=== PATIENT | female | born 1945 | race Caucasian/White ===

== ENCOUNTER → 2023-05-03 10:57 | Outpatient (REF) | payer OTHER, SELFPAY | LOC: RAD 10:57 | PROVIDERS: ATTENDING PHYSICIAN Internal Medicine Rheumatology; FAMILY PHYSICIAN Internal Medicine; REFERRING PHYSICIAN Obstetrics & Gynecology | DX: M85.88 Other specified disorders of bone density and structure, other site (principal); M81.0 Age-related osteoporosis without current pathological fracture | CPT/HCPCS: 77080 ==

== ENCOUNTER → 2023-07-15 13:22 | Outpatient (REF) | payer OTHER, SELFPAY | LOC: HWWDC 13:22 | PROVIDERS: ATTENDING PHYSICIAN Obstetrics & Gynecology; FAMILY PHYSICIAN Internal Medicine | DX: Z12.31 Encounter for screening mammogram for malignant neoplasm of breast (principal) | CPT/HCPCS: 77063; 77067 ==

== ENCOUNTER 2023-09-05 19:18 | Inpatient (IN) | payer OTHER, SELFPAY ==
[2023-09-05] VITALS (7 sets, daily range): BP systolic 116–168; BP diastolic 57–137; BMI 24.9
[2023-09-05] MEDS: DILAUDID 0.5 MG IV ×4 (17:04→22:14)
--- NOTE | 2023-09-05 17:04 | ED.GENMED ---
History of Present Illness
General
Chief Complaint: Fall
Source: patient
Exam Limitations: none
Time Seen by Provider: 09/05/23 16:59
Travel History
Have you had any contact with someone who has COVID-19?: No
Do you have any symptoms of coronavirus? Fever > 100 degrees, chills, cough, shortness of breath, sore throat, loss of taste or smell, muscle aches, or headache?: No
History of Present Illness
History of Present Illness:
See MDM
Past History
Past History
ED Past Medical History: Other (Recurrent bowel obstruction, intra-abdominal adhesions, diverticulitis, intracranial hemorrhage)
ED Past Surgical History: Bowel resection and Orthopedic
Social History
Tobacco: Non-smoker
Alcohol: None
Phy Exam
Physical Exam
Physical Exam:
See MDM
Course
Orders/Labs/Results
Orders:
Orders
09/05/23 16:55
Complete Blood Count/With Diff Urgent
Comprehensive Metabolic Panel Urgent
09/05/23 17:01
PTT Urgent
Prothrombin Time Urgent
09/05/23 17:03
HYDROmorphone [Dilaudid] 0.5 mg IV NOW STA
Ondansetron Injectable [Zofran] 4 mg IV NOW STA
Femur, Right 2 View [CR Femur - Right Min 2 Vw] Urgent
Comment:
Reason For Exam: fall, mid femur pain
Hip, Right 2-3 Views [CR Hip - RT w/wo Pel 2-3 Vw*] Urgent
Comment:
Reason For Exam: fall, R hip pain
Include a pelvis x-ray?: Yes
09/05/23 17:38
Electrocardiogram (*1) Urgent
Reason for Study: PreOp
EKG- Treatment ONCE
09/05/23 17:41
Consult Orthopedic [ORTHOPEDIC CONSULT] Routine
Consulting Provider: Mark Saldaña
Was physician already notified: Yes
09/05/23 17:52
HYDROmorphone [Dilaudid] 0.5 mg IV NOW STA
Abnormal Lab Results
09/05/23
16:55
RBC 3.92 L 10^6/uL
(4.20-5.40)
Hgb 11.7 L g/dL
(12.0-16.0)
MCHC 31.4 L g/dL
(33.0-37.0)
Eosinophils % 9.5 H %
(0-6)
Glucose 112 H mg/dl
(70-99)
09/05/23 16:55
09/05/23 16:55
Vital Signs
Initial and Last Documented VS:
Initial Vital Signs
Temp Pulse Resp BP Pulse Ox
97.8 F 70 20 159/88 97
09/05/23 16:50 09/05/23 16:50 09/05/23 16:50 09/05/23 16:50 09/05/23 16:50
Last Documented Vital Signs
Temp Pulse Resp BP Pulse Ox
97.8 F 64 15 168/137 99
09/05/23 16:50 09/05/23 17:00 09/05/23 17:00 09/05/23 17:00 09/05/23 17:00
MDM/Problems Addressed
Differential Diagnosis Includes:
HPI and MDM Narrative:
78-year-old female presenting with a trip and fall. Patient states she landed on her right hip. She complains of right hip and thigh pain. Patient is concerned she broke her hip. On exam, patient does warrant an externally rotated right leg. It
is neurovascular intact. I evaluated the patient immediately on arrival and ordered IV Dilaudid
Physical exam
General: Uncomfortable
HEENT: protecting airway
Neck: appears supple
CV: No evidence of cyanosis
Resp: No accessory muscle use
Abd: Non-distended
Extremities: Swelling and tenderness to right lateral hip. Distal extremity neurovascular intact. Extremity is externally rotated and shortened
Neuro: alert
Psych: Normal affect
Skin: Intact
Problems Addressed including Acute and Chronic Conditions affecting care:
1. Hip fracture
Acuity: acute
Prognosis: unstable
Details: Patient placed on IV pain medicine. Will discuss case with orthopedics
Updates
X-ray consistent with intertrochanteric fracture. Orthopedics made aware. Will admit
Differential Diagnosis (but not limited to): Hip fracture, pelvic fracture, femur fracture
Testing considered: CT head but she denies head trauma
Drug therapy (if applicable): OTC meds, please see d/c instruction regarding Rx drugs
Amount and/or Complexity of Data Reviewed
Clinical info obtained from: Patient
External data reviewed: N/A
Labs I independently reviewed (but not limited to): Hemoglobin stable
Radiology: X-ray independently reviewed: Hip x-ray shows intertrochanteric fracture
Pulse Ox: not hypoxic
EKG independently reviewed: Sinus bradycardia, normal axis, no STEMI
Saddle Maker: N/A
Critical Care: N/A
Risk of Complication:
Social Determinants of health: Good social support
Discussed with other providers: Orthopedics, hospitalist
Escalation of Care includes Admit/Obs: Given the hip fracture with current nonweightbearing status, will admit
Occasional wrong word or 'sound a like' substitutions may have occurred due to the inherent limitations of voice recognition software. Read the chart carefully and recognize, using context, where substitutions have occurred.
*Critical Care Note
Total Time (30-74mins, 75-104mins- exclusive of procedures): Not Applicable
ED Attending Note
-
Portions of this chart may have been created with voice recognition software.� Occasional wrong word or��sound alike� substitutions may have occurred due to the inherent limitations of voice recognition software.
Discharge Plan
Departure
Patient Disposition: Admit
Date of Disposition: 09/05/23
Time of Disposition: 17:44
Admit to: Med/Surg
Presentation/result/management discussed w/ accepting MD/DO: Hospitalist
Discharge Problem:
Intertrochanteric fracture of right hip
Prescriptions:
No Action
sucralfate 1 GRAM tablet
1 g PO ACHSPRN PRN (Reason: gi upset/issues)
lisinopril 20 MG tablet
20 mg PO DAILY
alprazolam 0.5 MG tablet
0.5 - 1 mg PO HSPRN PRN (Reason: insomnia)
famotidine 20 MG tablet
20 mg PO BID
escitalopram oxalate 10 MG tablet
10 mg PO HS
ascorbic acid (vitamin C) [Vitamin C] 500 MG tablet
500 mg PO DAILY
Glucosamine Sulf-Chondroitin 1 EACH capsule
2 tab PO DAILY
Align 4 MG capsule
1 tab PO DAILY
flaxseed-omega3,6,9-fatty acid 1 EACH capsule
1,000 mg PO BID
diphenhydramine HCl [Banophen] 50 MG capsule
50 mg PO HSPRN PRN (Reason: sleep)
cyanocobalamin (vitamin B-12) 1,000 MCG tablet
1,000 mcg PO DAILY
Potassium-99 99 MG tablet
99 mg PO DAILY
hyoscyamine sulfate 0.125 MG tablet, sublingual
0.125 mg PO Q4HPRN PRN (Reason: bowel problems)
B-complex with vitamin C 1 CAPLET tablet
1 cap PO TUTHSA
Systane Ultra (PF) 1 EACH dropperette
1 drp BOTH EYES QIDPRN PRN (Reason: dry eyes)
cholecalciferol (vitamin D3) 1,000 UNITS tablet
25 mcg PO DAILY
multivitamin with folic acid [Tab-A-Aric] 1 TABLET tablet
1 tab PO DAILY
atorvastatin 20 mg Tablet
20 mg PO QPM
aspirin 81 mg Tablet,Chewable
81 mg PO DAILY
Referrals:
Moses Alvarez MD [Family Provider] -
Interventions
Interventions:
*Risk Screen - Suicide Last Done: 09/05/23 16:50
*General Assessment Last Done: 09/05/23 16:50
*Neglect/Abuse Screening Last Done: 09/05/23 16:50
*ED COVID-19 Vaccine History Last Done: 09/05/23 16:50
ED-Musculoskeletal Assessment Last Done: 09/05/23 17:00
ED- Neurological Assessment Last Done: 09/05/23 17:00
ED-Skin Assessment Last Done: 09/05/23 17:00
[2023-09-05 17:05] LABS: % Eosinophils 9.5 % (0-6); % Immature Granulocytes 0.4 % (0-0.5); % Lymphocytes 23.8 % (20.5-51.1); % Monocytes 7.6 % (1.7-9.3); % Neutrophils 57.7 % (42.2-75.2); Absolute Basophils 0.1 10^3/uL (0-0.2); Absolute Eosinophils 0.7 10^3/uL (0-0.7); Absolute Lymphocytes 1.9 10^3/uL (1.2-3.4); Absolute Monocytes 0.6 10^3/uL (0.1-0.6); Absolute Neutrophils 4.5 10^3/uL (1.4-6.5); Hematocrit 37.3 % (37.0-47.0); Hemoglobin 11.7 g/dL (12.0-16.0); Mean Corp Hgb Conc. 31.4 g/dL (33.0-37.0); Mean Corpuscular Hgb 29.8 pg (27.0-31.0); Mean Corpuscular Volume 95.2 fL (81.0-99.0); Mean Platelet Volume 9.6 fL (7.4-10.4); Nucleated Red Blood Cells % 0 %; Platelet Count 289 10^3/uL (130-400); Red Blood Cell Count 3.92 10^6/uL (4.20-5.40); Red Cell Dist. Width 13.4 % (11.5-14.5); White Blood Cell Count 7.8 10^3/uL (4.8-10.8)
[2023-09-05] MEDS: ZOFRAN 4 MG IV (17:05)
[2023-09-05 17:17] LABS: ALT (SGPT) 18 U/L (0-35); AST (SGOT) 32 U/L (14-36); Albumin 4.3 g/dl (3.5-5.0); Alkaline Phosphatase 67 U/L (38-126); Blood Urea Nitrogen 17 mg/dl (7-17); Calcium 10.1 mg/dl (8.4-10.2); Carbon Dioxide 25 mmol/L (22-30); Chloride 101 mmol/L (98-107); Glucose 112 mg/dl (70-99); Potassium 4.3 mmol/L (3.5-5.1); Sodium 135 mmol/L (135-145); Total Bilirubin 0.5 mg/dl (0.2-1.3); Total Protein 6.7 g/dl (6.3-8.2); eGFR > 60.00
[2023-09-05 17:23] LABS: APTT 29.1 Sec (23.4-35.0); INR 1.05; PT 13.5 Sec (11.4-14.6)
--- NOTE | 2023-09-05 18:31 | CON.MD ---
Consultation - Medical
-
Full consult dictated. 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 Unable to ambulate and brought to [facility]. Radiographs revealed a displaced right IT hip fracture. Patient has a
history of right TKR performed at [place] 10 years ago. No knee pain. Hgb stable. Have discussed treatment options and have consented the patient for right hip ORIF with a gamma nail. Have placed the patient on the OR schedule for tomorrow as the OR
permits. Risks, benefits, complications and post op expectations discussed. The procedure was discussed in detail. All questions answered. NPO after MN.
--- NOTE | 2023-09-05 18:53 | HPS.HSE ---
Family Physician
-
Family Physician: Moses Alvarez MD
Chief Complaint
-
fall, right hip pain
History of Present Illness
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 Found to have a right IT fracture. Ortho saw the patient in the ED and plan is for OR
tomorrow. No focal neuro nor vascular deficits, no n/v, no CP, no SOB, no LOC, no syncope, positive for right hip pain.
Medical History
Past Medical History
Past Medical History: Reports GERD, HTN, Psychiatric and Other (perforated diverticulitis, recurrent small bowel obstructions )
Past Surgical History: Reports Bowel Resection (Dom's procedure and status post colostomy reversal in 1989 , small bowel resection in 2003, 2005 and more recently in August of 2021 at the [facility]), Orthopedic (history
of right TKR performed at [place] 10 years ago) and Other (LLE vein stripping, lysis of adhesions [place] 2021)
Social History
Tobacco: Non-smoker
Alcohol: None
Drug: None
Family History
Family History: Not pertinent
Allergies / Home Medications
Allergies reflects when Allergies were last updated in [facility].
Home Medications with original date entered in [facility]
Allergy/Medication List:
Allergies
Allergy/AdvReac Type Severity Reaction Status Date / Time
levofloxacin [From Levaquin] Allergy Unknown Verified 03/15/23 17:40
sorbitol Allergy DIARRHEA Verified 03/15/23 17:40
sulfamethoxazole Allergy Unknown Verified 03/15/23 17:40
[From Bactrim]
trimethoprim [From Bactrim] Allergy Unknown Verified 03/15/23 17:40
Home Medications
alprazolam 0.5 mg tablet 0.5 - 1 mg PO HSPRN PRN insomnia 05/19/21
escitalopram oxalate 10 mg tablet 10 mg PO HS Mental Health/Anxiety 05/19/21
famotidine 20 mg tablet 20 mg PO BID Gastrointestinal issue 05/19/21
lisinopril 20 mg tablet 20 mg PO DAILY Blood pressure 05/19/21
sucralfate 1 gram tablet 1 g PO ACHSPRN PRN gi upset/issues 05/19/21
B-complex with vitamin C 1 cap PO TUTHSA Supplement 06/25/21
Bifidobacterium infantis 4 mg capsule (Align) 1 tab PO DAILY Supplement 06/25/21
ascorbic acid (vitamin C) 500 mg tablet (Vitamin C) 500 mg PO DAILY Supplement 06/25/21
cholecalciferol (vitamin D3) 25 mcg (1,000 unit) tablet 25 mcg PO DAILY Supplement 06/25/21
cyanocobalamin (vitamin B-12) 1,000 mcg tablet 1,000 mcg PO DAILY Supplement 06/25/21
diphenhydramine HCl 50 mg capsule (Banophen) 50 mg PO HSPRN PRN sleep 06/25/21
flaxseed oil-omega 3,6,9-fatty acids 1,300 mg-670 mg-155 mg capsule 1,000 mg PO BID Supplement 06/25/21
glucosamine sulfate dipotassium Cl 500 mg-chondroitin 400 mg capsule (Glucosamine Sulfate 2 KCL-Chondroitin) 2 tab PO DAILY Supplement 06/25/21
hyoscyamine sulfate 0.125 mg sublingual tablet 0.125 mg PO Q4HPRN PRN bowel problems 06/25/21
multivitamin with folic acid 400 mcg tablet (Tab-A-Aric) 1 tab PO DAILY Supplement 06/25/21
peg 400-propylene glycol (PF) 0.4 %-0.3 % eye drops in a dropperette (Systane Ultra (PF)) 1 drp BOTH EYES QIDPRN PRN dry eyes 06/25/21
potassium 99 mg tablet (Potassium-99) 99 mg PO DAILY Electrolyte Repletion 06/25/21
aspirin 81 mg chewable tablet 81 mg PO DAILY Blood clot prevention/tx 02/16/22
atorvastatin 20 mg tablet 20 mg PO QPM High cholesterol 02/16/22
Review of Systems
-
A 12 point ROS was completed and negative except as noted: Yes
Physical Exam
Vital Signs
Vital Signs
Temp Pulse Resp BP Pulse Ox
97.8 F 74 16 133/58 97
09/05/23 16:50 09/05/23 18:15 09/05/23 18:15 09/05/23 18:06 09/05/23 18:15
Physical Exam
General: Well Developed, Well Nourished, No Apparent Distress, Conversant and Other (pain due to hip fracture)
HEENT: NormoCephalic, Anicteric and Moist mucous membranes
Respiratory: Clear
Cardiac: S1/S2 and Regular Rhythm
GI: Soft, Non Tender and Non Distended
Musculoskeletal: No Clubbing, No Cyanosis, No Edema and Other (right hip externally rotated and shortened)
Skin: Warm and Dry
Neuro: AO x 3, No Motor Deficits and Nonfocal/grossly intact
Psych: Calm
Laboratory Results
-
09/05/23 16:55
09/05/23 16:55
Laboratory Results
PT 13.5 Sec (11.4-14.6) 09/05/23 17:01
INR 1.05 09/05/23 17:01
APTT 29.1 Sec (23.4-35.0) 09/05/23 17:01
Total Bilirubin 0.5 mg/dl (0.2-1.3) 09/05/23 16:55
AST 32 U/L (14-36) 09/05/23 16:55
ALT 18 U/L (0-35) 09/05/23 16:55
Alkaline Phosphatase 67 U/L (38-126) 09/05/23 16:55
Data Reviewed
-
Medical Tests (Nuc Med, Echo, EKG etc): Image Personally Visualized and interpreted and Report Reviewed by me (sinus bradycardia)
Impression/Plan
-
IMPRESSION:
#Mechanical fall resulting in displaced right IT hip fracture:
-seen by Ortho in ED who consented the patient for right hip ORIF with a gamma nail, placed the patient on the OR schedule for tomorrow as the OR permits.�
-NPO p mn
-gentle IV fluids
-ok for diet up until midnight
-pain management prn
-supportive care
-bedrest
-EKG sinus bradycardia, heart rate 70 on tele, continue tele monitoring overnight
# History of recurrent small-bowel obstruction and bowel resection
-Dom's procedure and status post colostomy reversal in 1989 , small bowel resection in 2003, 2005 and more recently in August of 2021 at the [facility]
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
# Essential hypertension
-continue Lisinopril
# Depression
-cont Lexapro
-prn Ativan per home dosing at night
DVT proph-PCSs
Full Code
[2023-09-05] MEDS: NSS 1000 IV (19:59)
[2023-09-05] MEDS: PEPCID 20 MG PO (20:04)
[2023-09-05] MEDS: TYLENOL 650 MG PO (20:04)
[2023-09-05] MEDS: LEXAPRO 10 MG PO (22:14)
[2023-09-06] VITALS (13 sets, daily range): BP systolic 92–145; BP diastolic 47–88
[2023-09-06] MEDS: TYLENOL 650 MG PO ×3 (00:14→11:49)
--- NOTE | 2023-09-06 03:51 | PTCARENOTE ---
Pt received from ED via stretcher around 1950. Pulled over to bed x3 without incident. AAOx3. Telemetry = SR. Admission and assessment completed. Oriented to environment and plan of care discussed. Medicated for R hip pain per orders (refer to
MAR). Static overlay in place. Purewick external catheter maintained. IVF infusing via LAC. Call christopher within reach. Monitoring continues.
[2023-09-06] MEDS: TYLENOL PO (05:03)
[2023-09-06] MEDS: DILAUDID 0.5 MG IV ×4 (05:29→16:10)
--- NOTE | 2023-09-06 06:41 | PTCARENOTE ---
Complete bed bath and 1st set of CHG cloths used. Pt bladder scanned for 719 mL, straight cathed using sterile technique for 800 mL cloudy yellow urine. Purewick replaced.
[2023-09-06] MEDS: ZESTRIL 20 MG PO (07:58)
[2023-09-06] MEDS: PEPCID 20 MG PO (07:58)
--- NOTE | 2023-09-06 08:10 | W.PN.UPDATE ---
Update Note
Progress Note Update
Ms. Dowd is resting comfortably in bed this morning. She does endorse continued aching pain about the hip, but otherwise reports she is doing well.
Directed exam of the right lower extremity: tenderness to palpation about the right hip. Thigh soft and compressible. Calf soft and nontender. Patient able to wiggle toes, plantar and dorsiflex ankle. Neurovascularly intact distally.
Hgb 11.7 this AM.
Right intertrochanteric femur fracture
--We plan to proceed with surgical intervention today under the direction of Dr. Saldaña.
--NPO until surgery.
--NWB to RLE until surgery.
--Continue current pain management regimen.
--Antibiotic ordered to OR.
--T+S ordered.
--- NOTE | 2023-09-06 09:02 | W.PN.HOSP.TC ---
Today's Communication/Plan
-
For right hip surgical fixation today
Assessment / Plan
Assessment / Plan
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
[employer])� and fell after tripping over a tarp earlier today, resulting in severe right hip pain, inability to ambulate due to pain. Found to have a right IT fracture. Ortho saw the patient in the ED and plan is for OR tomorrow. No focal neuro
nor vascular deficits, no n/v, no CP, no SOB, no LOC, no syncope, positive for right hip pain.
#Mechanical fall resulting in displaced right IT hip fracture:
Appreciate orthopedic surgery input, plan for right hip ORIF with a gamma nail today by Dr. Saldaña
N.p.o., IV fluids, pain control, laxatives
PT/OT after surgery
#Sinus bradycardia
Mild, monitor in telemetry
# Essential hypertension
Blood pressure soft, will hold lisinopril
# History of recurrent small-bowel obstruction and bowel resection
Dom's procedure and status post colostomy reversal in 1989, small bowel resection in 2003, 2005 and more recently in August of 2021 at the [facility]
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
# Depression
Continue home Lexapro, Ativan as needed
DVT proph-SCDs in anticipation of surgery, recommend Lovenox afterwards
Full Code
Physical Exam
General: No acute distress
HEENT: Normocephalic, Atraumatic, EOMI, MMM
Respiratory: Clear to Auscultation bilaterally
Cardiac: Normal S1/S2, Regular Rate and Rhythm
GI: Soft, Nontender, Nondistended, Normal Bowel Sounds
Extremities: No Clubbing, Cyanosis, or Edema
Musculoskeletal: Right leg shortened and externally rotated
Neuro: Nonfocal/Grossly Intact
Psych: Calm, Cooperative
Anticipated Discharge: > 48 hours
Subjective/Interval History
-
Date of Service: September 06, 2023
Patient reports that her right hip pain is 6 out of 10 in intensity. She denies chest pain, shortness of breath. No nausea, no vomiting. No fever.
Objective Data
-
Vital Signs:
Vital Signs
Temp Pulse Resp BP Pulse Ox
98.0 F 60 18 125/52 97
09/06/23 07:20 09/06/23 07:20 09/06/23 07:20 09/06/23 07:20 09/06/23 07:20
I&O
09/05/23 09/06/23 09/07/23
06:59 06:59 06:59
Intake Total 740 / 740
Output Total 800 / 800
Balance -60 / -60
[2023-09-06] MEDS: MIRALAX PO (10:07)
--- NOTE | 2023-09-06 11:32 | CM ---
CM following re: discharge planning.
Reviewed pt's chart, met with pt.
Pt is an 78 year old female, admitted with primary dx of hip fx. Pt is aware, she is to OR today.
Pt reports she lives with in a 2SH, 2 steps to enter, has 2 supportive children. 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 No DME or VN. Pt reports she was at [facility].
Pt reports she understands she will need to go to a SNF after the surgery and pt preferred following SNFs: [facility], [facility] or [facility].
CM will afua a referral to requested SNF after PT/OT evaluations.
PCP: Moses Alvarez
Pharmacy: [facility].
D/C plan: preferred requested SNFs: [facility], [facility], [facility].
CM will follow to assist pt with discharge to a preferred SNF.
[2023-09-06] MEDS: ANCEF 10 IV (14:12)
[2023-09-06] MEDS: DILAUDID 0.25 MG IV ×2 (15:50→15:57)
[2023-09-06] MEDS: NSS 1000 IV (16:41)
--- NOTE | 2023-09-06 17:12 | PTCARENOTE ---
1700: Patient arrived to the unit from PACU. Head to toe assessment completed. Neurovascular assessment completed. Patient has poor movement in R LE. R hip and leg dressing clean, dry and intact. IVF infusing per MD order. Patient on 2L NC with SpO2
greater than 92%. Call christopher within reach and bed in lowest position. Patients at bedside.
[2023-09-06] MEDS: NSS IV (17:22)
[2023-09-06] MEDS: ASPIRIN 325 MG PO (17:30)
[2023-09-06] MEDS: LIPITOR 20 MG PO (17:30)
[2023-09-06] MEDS: ANCEF 5 IV (20:59)
[2023-09-06] MEDS: SENOKOT 17.1999999999999993 MG PO (20:59)
[2023-09-06] MEDS: COLACE 100 MG PO (20:59)
[2023-09-06] MEDS: LEXAPRO 10 MG PO (21:00)
--- NOTE | 2023-09-06 21:45 | PTCARENOTE ---
Pt aaox3, cooperative, anxious. oob to bsc x1 assist with RW. Pt steady, denies dizzines. Pt voided large amount of urine. Pt back into bed without issues.
[2023-09-06] MEDS: XANAX 0.5 MG PO (23:35)
[2023-09-07] VITALS (7 sets, daily range): BP systolic 102–130; BP diastolic 46–78; PULSE 67–72; O2SAT 98
[2023-09-07] MEDS: NSS 1000 IV ×2 (06:03→17:11)
[2023-09-07] MEDS: ANCEF 5 IV (06:03)
[2023-09-07 06:12] LABS: Hematocrit 25.6 % (37.0-47.0); Mean Corp Hgb Conc. 32.4 g/dL (33.0-37.0); Mean Corpuscular Hgb 30.7 pg (27.0-31.0); Mean Corpuscular Volume 94.8 fL (81.0-99.0); Mean Platelet Volume 10.1 fL (7.4-10.4); Platelet Count 216 10^3/uL (130-400); Red Cell Dist. Width 13.7 % (11.5-14.5); White Blood Cell Count 10.8 10^3/uL (4.8-10.8)
[2023-09-07 06:20] LABS: Hemoglobin 8.3 g/dL (12.0-16.0)
[2023-09-07 06:36] LABS: Blood Urea Nitrogen 16 mg/dl (7-17); Calcium 8.1 mg/dl (8.4-10.2); Carbon Dioxide 26 mmol/L (22-30); Chloride 104 mmol/L (98-107); Estimated Creatinine Clearance 55 ml/min; Glucose 159 mg/dl (70-99); Phosphorus 2.9 mg/dl (2.5-4.5); Potassium 4.6 mmol/L (3.5-5.1); Sodium 132 mmol/L (135-145); eGFR > 60.00
[2023-09-07] MEDS: VITAMIN D3 (cholecalciferol) 25 MCG PO (07:57)
[2023-09-07] MEDS: MIRALAX 17 GRAMS PO (07:57)
[2023-09-07] MEDS: PEPCID 20 MG PO (07:57)
[2023-09-07] MEDS: THERAGRAN 1 TABLET PO (07:57)
[2023-09-07] MEDS: COLACE 100 MG PO (07:57)
[2023-09-07] MEDS: ASPIRIN 325 MG PO (07:57)
[2023-09-07] MEDS: SENOKOT 17.1999999999999993 MG PO (07:57)
[2023-09-07] MEDS: VITAMIN C 500 MG PO (07:57)
--- NOTE | 2023-09-07 07:58 | W.PN.HOSP.TC ---
Addendum entered and electronically signed by Kulwinder Spence MD 09/07/23 16:20:
Right hip fracture is multifactorial in etiology, due to low level fall and age- related osteoporosis
Original Note:
Today's Communication/Plan
-
see bold
Assessment / Plan
Assessment / Plan
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 Found to have a right IT fracture. Ortho saw the patient in the ED and plan is for OR tomorrow. No focal neuro
nor vascular deficits, no n/v, no CP, no SOB, no LOC, no syncope, positive for right hip pain.
#Mechanical fall resulting in displaced right IT hip fracture:
Appreciate orthopedic surgery input, s/p ORIF with a gamma nail 09/[address] Saldaña
Pain control, laxatives, PT/OT - rec SNF
Will need aspirin 325 mg x 4 weeks for DVT prophylaxis
#Acute blood loss anemia
Secondary to fracture and surgery
Hemoglobin 8.3 today, was 11.7 upon admission
Continue to monitor, may need blood transfusion if it dips less than 8
#Acute hypoxic respiratory sufficiency
Currently requiring 2 L of oxygen, wean as tolerated
No fever, no shortness of breath, no coughing
Suspect secondary to atelectasis, incentive spirometry ordered
#Sinus bradycardia
Resolved
# Essential hypertension
Blood pressure soft, holding lisinopril
# History of recurrent small-bowel obstruction and bowel resection
Dom's procedure and status post colostomy reversal in 1989, small bowel resection in 2003, 2005 and more recently in August of 2021 at the [facility]
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
# Depression
Continue home Lexapro, Ativan as needed
DVT proph-aspirin 325 mg daily as per orthopedic surgery
Full Code
Physical Exam
General: No acute distress
HEENT: Normocephalic, Atraumatic, EOMI, MMM
Respiratory: Clear to Auscultation bilaterally
Cardiac: Normal S1/S2, Regular Rate and Rhythm
GI: Soft, Nontender, Nondistended, Normal Bowel Sounds
Extremities: No Clubbing, Cyanosis, or Edema
Musculoskeletal: Right hip incision dressed
Neuro: Nonfocal/Grossly Intact
Psych: Calm, Cooperative
Anticipated Discharge: 24 - 48 hours
Subjective/Interval History
-
Date of Service: September 07, 2023
Patient reports having severe hip pain yesterday, improved today. She is constipated, but tolerating her diet. No nausea, no vomiting. No fever. No chest pain, no shortness of breath.
Objective Data
-
Labs:
Laboratory Results
09/07/23
05:06
WBC 10.8
Hgb 8.3 L D
Hct 25.6 L
Plt Count 216 D
Sodium 132 L
Potassium 4.6
Chloride 104
Carbon Dioxide 26
BUN 16
Creatinine 0.7
Glucose 159 H
Calcium 8.1 L D
Vital Signs:
Vital Signs
Temp Pulse Resp BP Pulse Ox
99.1 F 75 16 113/55 97
09/07/23 07:00 09/07/23 07:00 09/07/23 07:00 09/07/23 07:00 09/07/23 07:00
I&O
09/06/23 09/07/23 09/08/23
06:59 06:59 06:59
Intake Total 740 / 740 1780 / 1780
Output Total 800 / 800 550 / 550
Balance -60 / -60 1230 / 1230
[2023-09-07] MEDS: VITAMIN B-12 1000 MCG PO (08:03)
[2023-09-07] MEDS: VITAMIN B-12 PO (08:03)
[2023-09-07] MEDS: LONITEN 1.25 MG PO (09:11)
--- NOTE | 2023-09-07 09:45 | W.PN.ORTHO ---
Today's Communication / Plan
-
78 year old female POD #1 s/p right hip gamma nail.�
-WBAT with walker.�
-PT/OT to tolerance.�
-Pain control as needed.� Ice to right hip.�
-Aspirin 325 mg po daily x 4 weeks for DVT prophylaxis.
-Dressings to remain in place x 7-10 days.�
-Appreciate case management's efforts in discharge planning.� Patient would like to go to rehab center. D/c when medically stable.
-Norberto to be removed at 2 weeks post op.� If done in rehab or at home, f/u in office in 4 weeks for repeat x-rays.
-Ortho will continue to follow.
Assessment
.
Distal Motor Intact: Yes
Dressing:
Clean, dry and intact.
Assessment:
78 year old female POD #1 s/p right hip gamma nail.
-WBAT with walker.
-PT/OT to tolerance.
-Pain control as needed. Ice to right hip.
-Aspirin 325 mg po daily x 4 weeks for DVT prophylaxis.
-Dressings to remain in place x 7-10 days.
-Appreciate case management's efforts in discharge planning. Patient would like to go to rehab center. D/c when medically stable.
-Norberto to be removed at 2 weeks post op. If done in rehab or at home, f/u in office in 4 weeks for repeat x-rays.
-Ortho will continue to follow.
Plan
.
Surgery / Date: 09/06/23 - right hip gamma nail - Dr. Saldaña
DVT Prophylaxis: Aspirin
Activity:
Out of bed.
PT/OT
Discharge Plan: Rehab
Subjective
.
.:
Patient resting comfortably in bed eating breakfast. Denies any pain at rest. Was able to get up and ambulate around 11 pm last night. Reports she had some mild discomfort, but overall was pleased with her lack of pain and her ability to ambulate
with the walker. States she would like to be discharged to a rehab center when medically stable.
Vital Signs and Labs
.
Vital Signs and Labs:
Lab Results
09/07/23 05:06
09/07/23 05:06
Temp Pulse Resp BP Pulse Ox
99.1 F 75 16 113/55 97
09/07/23 07:00 09/07/23 07:00 09/07/23 07:00 09/07/23 07:00 09/07/23 07:00
PT 13.5 Sec (11.4-14.6) 09/05/23 17:01
INR 1.05 09/05/23 17:01
Physical Exam
-
right hip/thigh: Aquacel dressings c/d/i. Minimal drainage on proximal dressing. Mild diffuse swelling. No erythema or ecchymosis. Gentle ROM without pain. Calf is soft and non tender to palpation. N/v intact distally.
[2023-09-07] MEDS: DUPHALAC/CHRONULAC 20 GRAMS PO (11:21)
[2023-09-07] MEDS: MILK OF MAGNESIA 30 ML PO (11:21)
[2023-09-07] MEDS: ROXICODONE 5 MG PO ×2 (11:33→21:51)
--- NOTE | 2023-09-07 14:47 | PN.CDI ---
CDI
- -
CDI:
Physician Documentation Request
Admit Date: 09/05/23 19:18
Dear Doctor Do,
Patient admitted with displaced right IT hip fracture s/p ORIF with a gamma nail.
09/06 PN, 'Mechanical fall resulting in displaced right IT hip fracture.....fell after tripping over a tarp.'
02/23/2011 Bone density, 'IMPRESSION: Osteopenia of the lumbar spine and proximal femur without significant change.'
Patient's home medication list includes Fosamax and Vitamin D.
Please provide in your note the likely etiology/etiologies of the documented right hip fracture:
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
Low level fall only
Other
Use of terms such as suspected, likely, concern for, or probable (associated with a specific diagnosis that is being evaluated, monitored, or treated as if it exists) are acceptable and can be coded in the inpatient setting, when documented at the
time of discharge.
Thank you,
Bhavya FABIAN,RN,CCDS
CDI Specialist
Available via [place] text
Please use your independent medical judgment in providing your response.
[2023-09-07] MEDS: LIPITOR 20 MG PO (17:11)
[2023-09-07] MEDS: COLACE PO (21:36)
[2023-09-07] MEDS: SENOKOT PO (21:36)
[2023-09-07] MEDS: DUPHALAC/CHRONULAC PO (21:36)
[2023-09-07] MEDS: LEXAPRO 10 MG PO (21:51)
[2023-09-07] MEDS: XANAX 0.5 MG PO (21:51)
[2023-09-08 06:21] LABS: Hematocrit 25.3 % (37.0-47.0); Hemoglobin 8.1 g/dL (12.0-16.0); Mean Corpuscular Hgb 30.1 pg (27.0-31.0); Mean Corpuscular Volume 94.1 fL (81.0-99.0); Mean Platelet Volume 10.4 fL (7.4-10.4); Platelet Count 229 10^3/uL (130-400); Red Blood Cell Count 2.69 10^6/uL (4.20-5.40); Red Cell Dist. Width 13.8 % (11.5-14.5); White Blood Cell Count 12.4 10^3/uL (4.8-10.8)
--- NOTE | 2023-09-08 06:29 | DOWNTIME ---
There was a [employer] Client Filler Sifter Helper Downtime on 09/08/2023 from 0100 to 09/08/2023 at 0322. Downtime documentation of patient's care, including medication administrations, has been reconciled in the electronic record per guidelines. Refer to the
patient's paper chart under the miscellaneous tab to see printed paper medication records and downtime forms.
[2023-09-08 07:05] LABS: Blood Urea Nitrogen 12 mg/dl (7-17); Calcium 8.5 mg/dl (8.4-10.2); Carbon Dioxide 24 mmol/L (22-30); Chloride 103 mmol/L (98-107); Estimated Creatinine Clearance 65 ml/min; Glucose 121 mg/dl (70-99); Sodium 134 mmol/L (135-145); eGFR > 60.00
[2023-09-08 07:10] LABS: Potassium 4.4 mmol/L (3.5-5.1)
[2023-09-08 07:15] VITALS: BP 129/51
[2023-09-08] MEDS: VITAMIN D3 (cholecalciferol) 25 MCG PO (07:56)
[2023-09-08] MEDS: VITAMIN C 500 MG PO (07:56)
[2023-09-08] MEDS: PEPCID 20 MG PO (07:56)
[2023-09-08] MEDS: ASPIRIN 325 MG PO (07:56)
[2023-09-08] MEDS: THERAGRAN 1 TABLET PO (07:57)
[2023-09-08] MEDS: VITAMIN B-12 1000 MCG PO (07:57)
[2023-09-08] MEDS: SENOKOT PO ×2 (07:57→08:05)
[2023-09-08] MEDS: COLACE PO (08:00)
[2023-09-08] MEDS: DUPHALAC/CHRONULAC PO (08:00)
--- NOTE | 2023-09-08 08:16 | W.PN.HOSP.TC ---
Today's Communication/Plan
-
Trend H&H
iron supplementation
cont PT/OT
discharge planning Home PT vs SNF (patient prefers home)
Assessment / Plan
Assessment / Plan
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 Found to have a right IT fracture. Ortho saw the patient in the ED and plan is for OR tomorrow. No focal neuro
nor vascular deficits, no n/v, no CP, no SOB, no LOC, no syncope, positive for right hip pain.
#Mechanical fall resulting in displaced right IT hip fracture:
Appreciate orthopedic surgery input, s/p ORIF with a gamma nail 09/[address] Saldaña
Pain control, laxatives, PT/OT - rec SNF
Will need aspirin 325 mg x 4 weeks for DVT prophylaxis
#Acute blood loss anemia
#Mild Iron Deficiency
#Anemia of chronic disease
Secondary to fracture and surgery
Hemoglobin 8.1 today, was 11.7 upon admission
Continue to monitor, may need blood transfusion if it dips less than 8
Iron study appreciated as above, oral iron supplement started
#Acute hypoxic respiratory sufficiency
Currently requiring 2 L of oxygen, wean as tolerated
No fever, no shortness of breath, no coughing
Suspect secondary to atelectasis, incentive spirometry ordered
#Sinus bradycardia
Resolved
# Essential hypertension
Blood pressure soft, holding lisinopril
# History of recurrent small-bowel obstruction and bowel resection
Dom's procedure and status post colostomy reversal in 1989, small bowel resection in 2003, 2005 and more recently in August of 2021 at the [facility]
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
# Depression
Continue home Lexapro, Ativan as needed
DVT proph-aspirin 325 mg daily as per orthopedic surgery
GI ppx famotidine
Full Code
PT/OT appreciated home PT vs SNF (patient prefers home)
I spent a total of 55 minutes with the patient or on the floor. More than 50% of this time involved counseling and coordination of care.
Physical Exam
General: No acute distress
HEENT: Normocephalic, Atraumatic, EOMI, MMM
Respiratory: Clear to Auscultation bilaterally
Cardiac: Normal S1/S2, Regular Rate and Rhythm
GI: Soft, Nontender, Nondistended, Normal Bowel Sounds
Extremities: No Clubbing, Cyanosis, or Edema
Musculoskeletal: Right hip incision dressed
Neuro: Nonfocal/Grossly Intact
Psych: Calm, Cooperative
Anticipated Discharge: Within 24 hours
Subjective/Interval History
-
Date of Service: September 08, 2023
Seen and examined at bedside in no acute distress sitting up comfortably in chair. Reports overall feeling well. Improved functional status, denies pain
Objective Data
-
Labs:
Laboratory Results
09/08/23
05:35
WBC 12.4 H
Hgb 8.1 L
Hct 25.3 L
Plt Count 229
Sodium 134 L
Potassium 4.4
Chloride 103
Carbon Dioxide 24
BUN 12
Creatinine 0.5 L
Glucose 121 H
Calcium 8.5
Vital Signs:
Vital Signs
Temp Pulse Resp BP Pulse Ox
98.6 F 77 18 120/55 95
09/07/23 23:25 09/07/23 23:25 09/07/23 23:25 09/07/23 23:25 09/07/23 23:25
I&O
09/07/23 09/08/23 09/09/23
06:59 06:59 06:59
Intake Total 1780 / 1780 2280 / 2280
Output Total 550 / 550
Balance 1230 / 1230 2279 / 0
--- NOTE | 2023-09-08 11:16 | CM ---
CM following re: discharge planning.
Reviewed pt's chart, met with pt.
Pt is POD #1 s/p right hip gamma nail.�
PT and OT evaluations noted - SNF level of care recommended.
pt is aware, expressed her agreement. A referral made to following requested SNFs: [facility], [facility] and [facility]. Pt stated her #1 preferred SNF is [facility].
Awaiting for determinations from requested SNFs.
D/C plan: preferred and accepted SNF.
CM will follow to assist pt with discharge to a preferred SNF.
[2023-09-08 12:42] LABS: Iron 31 ug/dl (37-170)
--- NOTE | 2023-09-08 13:00 | W.PN.UPDATE ---
Update Note
Progress Note Update
78 year old female POD #2 s/p right hip gamma nail.�
-WBAT with walker.�
-PT/OT to tolerance.�
-Pain control as needed.� Ice to right hip.�
-Aspirin 325 mg po daily x 4 weeks for DVT prophylaxis.
-Dressings to remain in place x 7-10 days.�
-Appreciate case management's efforts in discharge planning.� Patient would like to go to rehab center. D/c when medically stable.
-Norberto to be removed at 2 weeks post op.� If done in rehab or at home, f/u in office in 4 weeks for repeat x-rays.
-Ortho will follow peripherally at this time
[2023-09-08 13:08] LABS: Percent Saturation 13 % (20-50); Total Iron Binding Capacity 229 ug/dl (265-497)
[2023-09-08 14:41] VITALS: BP 110/82; PULSE 94; O2SAT 94
[2023-09-08 15:10] VITALS: BP 123/45
[2023-09-08 15:26] LABS: Vitamin B12 801 pg/ml (239-931)
[2023-09-08] MEDS: LIPITOR 20 MG PO (17:25)
[2023-09-08] MEDS: FEOSOL 325 MG PO (20:14)
[2023-09-08] MEDS: LEXAPRO 10 MG PO (22:23)
[2023-09-08] MEDS: XANAX 0.5 MG PO (22:23)
[2023-09-08] MEDS: ROXICODONE 5 MG PO (22:23)
[2023-09-08 23:11] VITALS: BP 139/59
[2023-09-09] MEDS: ROXICODONE 5 MG PO ×2 (03:41→22:25)
[2023-09-09 04:55] LABS: Hemoglobin 7.5 g/dL (12.0-16.0); Mean Corp Hgb Conc. 32.6 g/dL (33.0-37.0); Mean Corpuscular Hgb 30.4 pg (27.0-31.0); Mean Corpuscular Volume 93.1 fL (81.0-99.0); Mean Platelet Volume 10.3 fL (7.4-10.4); Platelet Count 182 10^3/uL (130-400); Red Blood Cell Count 2.47 10^6/uL (4.20-5.40); Red Cell Dist. Width 13.7 % (11.5-14.5); White Blood Cell Count 10.1 10^3/uL (4.8-10.8)
[2023-09-09 05:33] LABS: Blood Urea Nitrogen 10 mg/dl (7-17); Calcium 8.5 mg/dl (8.4-10.2); Carbon Dioxide 26 mmol/L (22-30); Chloride 103 mmol/L (98-107); Estimated Creatinine Clearance 65 ml/min; Glucose 114 mg/dl (70-99); Potassium 4.6 mmol/L (3.5-5.1); Sodium 134 mmol/L (135-145); eGFR > 60.00
[2023-09-09 07:25] VITALS: BP 121/69
[2023-09-09] MEDS: FEOSOL 325 MG PO (08:21)
[2023-09-09] MEDS: VITAMIN C 500 MG PO (08:21)
[2023-09-09] MEDS: VITAMIN B-12 1000 MCG PO (08:21)
[2023-09-09] MEDS: SENOKOT-S 1 TABLET PO (08:21)
[2023-09-09] MEDS: VITAMIN D3 (cholecalciferol) 25 MCG PO (08:21)
[2023-09-09] MEDS: PEPCID 20 MG PO (08:21)
[2023-09-09] MEDS: ASPIRIN 325 MG PO (08:21)
[2023-09-09] MEDS: THERAGRAN 1 TABLET PO (08:22)
--- NOTE | 2023-09-09 08:49 | W.PN.HOSP.TC ---
Today's Communication/Plan
-
Transfuse 1 unit of packed red blood cells
Discharge home with home PT tomorrow per patient request
Assessment / Plan
Assessment / Plan
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 Found to have a right IT fracture. Ortho saw the patient in the ED and plan is for OR tomorrow. No focal neuro
nor vascular deficits, no n/v, no CP, no SOB, no LOC, no syncope, positive for right hip pain.
#Mechanical fall resulting in displaced right IT hip fracture:
Appreciate orthopedic surgery input, s/p ORIF with a gamma nail 09/[address] Saldaña
Pain control, laxatives, PT/OT - rec SNF, pt wants to go home w/ home care
Will need aspirin 325 mg x 4 weeks for DVT prophylaxis
-Dressings to remain in place x 7-10 days.�
-Emily to be removed at 2 weeks post op.� F/u in office in 4 weeks for repeat x-rays.
#Acute blood loss anemia
#Mild Iron Deficiency
#Anemia of chronic disease
Secondary to fracture and surgery
Hemoglobin 7.5, was 8.1, was 11.7 upon admission
Transfuse 1 pack of red blood cells 09/08, monitor hemoglobin
Iron study appreciated as above, oral iron supplement started
#Acute hypoxic respiratory sufficiency
Currently requiring 2 L of oxygen, wean as tolerated
No fever, no shortness of breath, no coughing
Suspect secondary to atelectasis, incentive spirometry ordered
Resolved, now 94% on room air
#Sinus bradycardia
Resolved
# Essential hypertension
Blood pressure soft, holding lisinopril
#Hyponatremia
mild
# History of recurrent small-bowel obstruction and bowel resection
Dom's procedure and status post colostomy reversal in 1989, small bowel resection in 2003, 2005 and more recently in August of 2021 at the [facility]
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
# Depression
Continue home Lexapro, Ativan as needed
DVT proph-aspirin 325 mg daily as per orthopedic surgery
GI ppx famotidine
Full Code
PT/OT appreciated home PT vs SNF (patient prefers home)
Physical Exam
General: No acute distress
HEENT: Normocephalic, Atraumatic, EOMI, MMM
Respiratory: Clear to Auscultation bilaterally
Cardiac: Normal S1/S2, Regular Rate and Rhythm
GI: Soft, Nontender, Nondistended, Normal Bowel Sounds
Extremities: No Clubbing, Cyanosis, or Edema
Musculoskeletal: Right hip incision dressed
Neuro: Nonfocal/Grossly Intact
Psych: Calm, Cooperative
Anticipated Discharge: Within 24 hours
Subjective/Interval History
-
Date of Service: September 09, 2023
Her right hip pain is tolerable. No chest pain, no shortness of breath. No nausea, no vomiting. No fever.
Objective Data
-
Labs:
Laboratory Results
09/09/23
04:00
WBC 10.1
Hgb 7.5 L
Hct 23.0 L
Plt Count 182 D
Sodium 134 L
Potassium 4.6
Chloride 103
Carbon Dioxide 26
BUN 10
Creatinine 0.5 L
Glucose 114 H
Calcium 8.5
Vital Signs:
Vital Signs
Temp Pulse Resp BP Pulse Ox
99.2 F 93 18 121/69 94
09/09/23 07:25 09/09/23 07:25 09/09/23 07:25 09/09/23 07:25 09/09/23 07:25
I&O
09/08/23 09/09/23 09/10/23
06:59 06:59 06:59
Intake Total 2280 / 2280 600 / 600
Balance 2280 / 2280 600 / 600
[2023-09-09] MEDS: LONITEN 1.25 MG PO (10:56)
--- NOTE | 2023-09-09 11:50 | PN.CDI ---
CDI
- -
CDI:
Physician Documentation Request
Admit Date: 09/05/23 19:18
Dear Doctor Do,
Patient admitted with displaced right IT hip fracture s/p ORIF with a gamma nail.
Na levels documented below:
Patient received IV NSS.
Laboratory Tests
09/07/23 09/08/23 09/09/23
05:06 05:35 04:00
Sodium 132 L 134 L 134 L
Based on the above, please clarify in the progress notes, the appropriate diagnosis, if significant, that supports the above abnormalities and additional evaluation, monitoring and/or treatment rendered:
Hyponatremia
Insignificant abnormal lab values
Other
Use of terms such as suspected, likely, concern for, or probable (associated with a specific diagnosis that is being evaluated, monitored, or treated as if it exists) are acceptable and can be coded in the inpatient setting, when documented at the
time of discharge.
Thank you,
Bhavya FABIAN,RN,CCDS
CDI Specialist
Available via [place] text
Please use your independent medical judgment in providing your response.
--- NOTE | 2023-09-09 12:53 | CM ---
HGB 7.5, Unit PRBC ordered. DISCHARGE PLAN OF CARE: Therapy recommendation for SNF vs HH. Patient prefers to discharge home with HH VN and PT services. will be home and is willing to assist patient, however, there will be times when he is
out of the home. Patient feels she should not be alone and she and family are working on getting a count team member or PSYCHOLOGIST CHIEF to stay with her when is out of the home. They have some viable contacts that may be willing to assist. This CM offered to
supply a list of count team member agencies. Patient preferred to exhaust their contacts before receiving CM list. has been notified that CM is working on providing a safe discharge for patient in her home. HH referral forwarded.
[2023-09-09 13:07] VITALS: BP 124/65
--- NOTE | 2023-09-09 14:42 | W.PN.UPDATE ---
Update Note
Progress Note Update
Patient seen and examined. VSS. Hgb low and receiving 1U PRBC. Pulm: nonlabored. CV: regular. Ext: RLE NVI distally. Calf soft. Dressing with mild bloody drainage. Dressings changed and no active drainage. Continue current care. Plan for
discharge home with home PT. Followup in the office in 2 weeks for staple removal or 4weeks if VN removes thiago in 2 weeks.
[2023-09-09 15:48] VITALS: BP 138/75
--- NOTE | 2023-09-09 16:01 | VNURNOTE ---
Home Health Liaison met with patient at 1500 to discuss [facility] nurse/therapy, visits, schedule and homebound status. Patient is agreeable and understands that visits at home will be 2-3 x per week to assess and teach medical management.
[facility] brochure provided with contact information. Patient is aware that [facility] will contact her for start of care in 1-2 days after discharge from .
[facility] referral completed in [facility].
[2023-09-09] MEDS: LIPITOR 20 MG PO (17:07)
[2023-09-09] MEDS: SENOKOT-S PO (19:42)
[2023-09-09] MEDS: LEXAPRO 10 MG PO (21:08)
[2023-09-09] MEDS: XANAX 0.5 MG PO (22:23)
[2023-09-09 23:18] VITALS: BP 147/69
[2023-09-10 06:21] LABS: Hematocrit 24.7 % (37.0-47.0); Hemoglobin 8.2 g/dL (12.0-16.0); Mean Corp Hgb Conc. 33.2 g/dL (33.0-37.0); Mean Corpuscular Hgb 30.7 pg (27.0-31.0); Mean Corpuscular Volume 92.5 fL (81.0-99.0); Mean Platelet Volume 10.2 fL (7.4-10.4); Platelet Count 208 10^3/uL (130-400); Red Blood Cell Count 2.67 10^6/uL (4.20-5.40); Red Cell Dist. Width 14.5 % (11.5-14.5); White Blood Cell Count 9.5 10^3/uL (4.8-10.8)
[2023-09-10 06:37] LABS: Blood Urea Nitrogen 11 mg/dl (7-17); Calcium 8.2 mg/dl (8.4-10.2); Carbon Dioxide 26 mmol/L (22-30); Chloride 105 mmol/L (98-107); Estimated Creatinine Clearance 65 ml/min; Glucose 100 mg/dl (70-99); Potassium 3.9 mmol/L (3.5-5.1); Sodium 135 mmol/L (135-145); eGFR > 60.00
[2023-09-10 07:20] VITALS: BP 146/66
--- NOTE | 2023-09-10 08:44 | W.PN.HOSP.TC ---
Today's Communication/Plan
-
Discharge to short-term rehab when bed available
Assessment / Plan
Assessment / Plan
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 Found to have a right IT fracture. Ortho saw the patient in the ED and plan is for OR tomorrow. No focal neuro
nor vascular deficits, no n/v, no CP, no SOB, no LOC, no syncope, positive for right hip pain.
#Mechanical fall resulting in displaced right IT hip fracture:
Appreciate orthopedic surgery input, s/p ORIF with a gamma nail 09/[address] Saldaña
Pain control, laxatives, PT/OT - rec SNF
Will need aspirin 325 mg x 4 weeks for DVT prophylaxis through 10/02
-Dressings to remain in place x 7-10 days.�
-Norberto to be removed at 2 weeks post op.� F/u in office in 4 weeks for repeat x-rays
-Patient now requesting short-term rehab placement, discussed with case management
-Discharge to short-term rehab when bed available
#Acute blood loss anemia
#Mild Iron Deficiency
#Anemia of chronic disease
Secondary to fracture and surgery
Hemoglobin 8.2 today, increased from 7.5 status post 1 unit of packed red blood cells on 09/08, hemoglobin was 8.1, was 11.7 upon admission
Started on oral iron, continue to monitor hemoglobin
#Acute hypoxic respiratory sufficiency
Currently requiring 2 L of oxygen, wean as tolerated
No fever, no shortness of breath, no coughing
Suspect secondary to atelectasis, incentive spirometry ordered
Resolved, now 94% on room air
#Sinus bradycardia
Resolved
# Essential hypertension
Blood pressure trending up, resume lisinopril
#Hyponatremia
Mild
# History of recurrent small-bowel obstruction and bowel resection
Dom's procedure and status post colostomy reversal in 1989, small bowel resection in 2003, 2005 and more recently in August of 2021 at the [facility]
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
# Depression
Continue home Lexapro, Ativan as needed
DVT proph-aspirin 325 mg daily as per orthopedic surgery
GI ppx famotidine
Full Code
Physical Exam
General: No acute distress
HEENT: Normocephalic, Atraumatic, EOMI, MMM
Respiratory: Clear to Auscultation bilaterally
Cardiac: Normal S1/S2, Regular Rate and Rhythm
GI: Soft, Nontender, Nondistended, Normal Bowel Sounds
Extremities: No Clubbing, Cyanosis, or Edema
Musculoskeletal: Right hip incision dressed
Neuro: Nonfocal/Grossly Intact
Anticipated Discharge: Within 24 hours
Subjective/Interval History
-
Date of Service: September 10, 2023
Patient reports feeling better today. She feels so better after getting her blood and getting 9 hours of sleep last night. She denies chest pain, denies shortness of breath. No fever, no vomiting.
Objective Data
-
Labs:
Laboratory Results
09/10/23
05:28
WBC 9.5
Hgb 8.2 L
Hct 24.7 L
Plt Count 208
Sodium 135
Potassium 3.9
Chloride 105
Carbon Dioxide 26
BUN 11
Creatinine 0.4 L
Glucose 100 H
Calcium 8.2 L
Vital Signs:
Vital Signs
Temp Pulse Resp BP Pulse Ox
98.8 F 68 16 146/66 93
09/10/23 07:20 09/10/23 07:20 09/10/23 07:20 09/10/23 07:20 09/10/23 07:20
I&O
09/09/23 09/10/23 09/11/23
06:59 06:59 06:59
Intake Total 600 / 600 1680 / 1680
Balance 600 / 600 1680 / 1680
[2023-09-10] MEDS: PEPCID 20 MG PO (09:57)
[2023-09-10] MEDS: ASPIRIN 325 MG PO (09:57)
[2023-09-10] MEDS: VITAMIN B-12 1000 MCG PO (09:58)
[2023-09-10] MEDS: FEOSOL 325 MG PO (09:59)
[2023-09-10] MEDS: VITAMIN D3 (cholecalciferol) 25 MCG PO (09:59)
[2023-09-10] MEDS: THERAGRAN 1 TABLET PO (09:59)
[2023-09-10] MEDS: VITAMIN C 500 MG PO (09:59)
[2023-09-10] MEDS: SENOKOT-S PO ×2 (10:03→23:04)
[2023-09-10 13:09] VITALS: BP 149/76; PULSE 80
[2023-09-10] MEDS: ZESTRIL 10 MG PO (15:07)
[2023-09-10] MEDS: SENOKOT-S 1 TABLET PO (15:08)
--- NOTE | 2023-09-10 16:05 | CM ---
Patient has been accepted to [facility] for correction and rehab services. Insurance auth required. All documentation forwarded to Pasquale @ [phone] for Certification # [id number]. Alma is contact at [facility] # [phone], TCU # [phone]. Will await auth.
[2023-09-10] MEDS: ROXICODONE 5 MG PO (16:41)
[2023-09-10] MEDS: LIPITOR 20 MG PO (16:42)
[2023-09-10] MEDS: ZOFRAN 4 MG IV (18:32)
--- NOTE | 2023-09-10 21:00 | PTCARENOTE ---
Pt complains of 'feeling terrible' states 'I think I am obstructed, my abdomen is so distended and hurting, I will need an enema'. +BS hyperactive, tympanic, + flatus. Received PRN meghna at 1832. Pt reports daily BMs, small BM earlier. Assisted
to BR to toilet. Very small mucoid stool passed. When ambulating back to chair, pt began to vomit (approximately 300 mL emesis w/partially undigested particles). Assisted to chair, hygiene performed. PLANT SCIENTIST covering house made aware of
events/complaints. Electronic orders received for IV compazine and abdominal series. Pt updated on plan of care. Monitoring continues.
[2023-09-10] MEDS: COMPAZINE 5 MG IV (22:11)
[2023-09-10] MEDS: MILK OF MAGNESIA 30 ML PO (23:04)
[2023-09-10] MEDS: XANAX 0.5 MG PO (23:04)
[2023-09-10] MEDS: LEXAPRO 10 MG PO (23:04)
[2023-09-10 23:09] VITALS: BP 145/67
--- NOTE | 2023-09-10 23:15 | PTCARENOTE ---
Pt reports improvement of abdominal symptoms. Does not want to take scheduled senokot since she that's when she started to feel nauseous. Agreeable to take PRN milk of mag to maintain bowel regimen, PRN xanax also administered at pt's request
(refer to MAR). Reports pain as tolerable at this time 2/10 does not want any analgesic. Call christopher within reach. Monitoring continues.
[2023-09-11 07:04] LABS: Hematocrit 26.4 % (37.0-47.0); Hemoglobin 8.5 g/dL (12.0-16.0); Mean Corp Hgb Conc. 32.2 g/dL (33.0-37.0); Mean Corpuscular Hgb 30.2 pg (27.0-31.0); Mean Platelet Volume 10.3 fL (7.4-10.4); Platelet Count 257 10^3/uL (130-400); Red Blood Cell Count 2.81 10^6/uL (4.20-5.40); Red Cell Dist. Width 14.3 % (11.5-14.5); White Blood Cell Count 12.5 10^3/uL (4.8-10.8)
--- NOTE | 2023-09-11 07:23 | W.PN.HOSP.TC ---
Today's Communication/Plan
-
Discharge to short-term rehab when insurance authorization has been obtained
Assessment / Plan
Assessment / Plan
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
[employer])� and fell after tripping over a tarp earlier today, resulting in severe right hip pain, inability to ambulate due to pain. Found to have a right IT fracture. Ortho saw the patient in the ED and plan is for OR tomorrow. No focal neuro
nor vascular deficits, no n/v, no CP, no SOB, no LOC, no syncope, positive for right hip pain.
#Mechanical fall resulting in displaced right IT hip fracture:
Appreciate orthopedic surgery input, s/p ORIF with a gamma nail 09/[address] Saldaña
Pain control, laxatives, PT/OT - rec SNF
Will need aspirin 325 mg x 4 weeks for DVT prophylaxis through 10/02
-Dressings to remain in place x 7-10 days.�
-[place] to be removed at 2 weeks post op.� F/u in office in 4 weeks for repeat x-rays
-Patient now requesting short-term rehab placement, discussed with case management
-Discharge to short-term rehab when insurance authorization has been obtained
#Acute blood loss anemia
#Mild Iron Deficiency
#Anemia of chronic disease
Secondary to fracture and surgery
Hemoglobin 8.5 today, was 8.2, increased from 7.5 status post 1 unit of packed red blood cells on 09/08, hemoglobin was 8.1, was 11.7 upon admission
Started on oral iron, continue to monitor hemoglobin
#Acute hypoxic respiratory sufficiency
Currently requiring 2 L of oxygen, wean as tolerated
No fever, no shortness of breath, no coughing
Suspect secondary to atelectasis, incentive spirometry ordered
Resolved, now 94% on room air
#Sinus bradycardia
Resolved
# Essential hypertension
Blood pressure trending up, resumed lisinopril 09/09
#Hyponatremia
Mild
# History of recurrent small-bowel obstruction and bowel resection
Dom's procedure and status post colostomy reversal in 1989, small bowel resection in 2003, 2005 and more recently in August of 2021 at the [facility]
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
# Depression
Continue home Lexapro, Ativan as needed
DVT proph-aspirin 325 mg daily as per orthopedic surgery
GI ppx famotidine
Full Code
Total time spent to see the patient on the floor, examine the patient, review data and lab results, discuss treatment plan with patient, nursing staff around 35 minutes.
Physical Exam
General: No acute distress
HEENT: Normocephalic, Atraumatic, EOMI, MMM
Respiratory: Clear to Auscultation bilaterally
Cardiac: Normal S1/S2, Regular Rate and Rhythm
GI: Soft, Nontender, Nondistended, Normal Bowel Sounds
Extremities: No Clubbing, Cyanosis, or Edema
Musculoskeletal: Right hip incision dressed
Neuro: Nonfocal/Grossly Intact
Anticipated Discharge: Within 24 hours
Subjective/Interval History
-
Date of Service: September 11, 2023
Patient had nausea and vomiting with her laxative yesterday. No shortness of breath, no chest pain. Her right hip pain is controlled. No fever.
Objective Data
-
Labs:
Laboratory Results
09/11/23
05:56
WBC 12.5 H
Hgb 8.5 L
Hct 26.4 L
Plt Count 257 D
Sodium Pending
Potassium Pending
Chloride Pending
Carbon Dioxide Pending
BUN Pending
Creatinine Pending
Glucose Pending
Calcium Pending
Vital Signs:
Vital Signs
Temp Pulse Resp BP Pulse Ox
97.5 F 80 16 145/67 100
09/10/23 23:09 09/10/23 23:09 09/10/23 23:09 09/10/23 23:09 09/11/23 05:16
I&O
09/10/23 09/11/23 09/12/23
06:59 06:59 06:59
Intake Total 1680 / 1680 1080 / 1080
Balance 1680 / 1680 1080 / 1080
[2023-09-11 07:28] LABS: Blood Urea Nitrogen 16 mg/dl (7-17); Calcium 8.6 mg/dl (8.4-10.2); Carbon Dioxide 28 mmol/L (22-30); Chloride 102 mmol/L (98-107); Estimated Creatinine Clearance 65 ml/min; Glucose 107 mg/dl (70-99); Potassium 4.2 mmol/L (3.5-5.1); Sodium 135 mmol/L (135-145); eGFR > 60.00
[2023-09-11 07:45] VITALS: BP 104/54
[2023-09-11] MEDS: VITAMIN B-12 1000 MCG PO (09:55)
[2023-09-11] MEDS: VITAMIN C 500 MG PO (09:55)
[2023-09-11] MEDS: FEOSOL 325 MG PO (09:56)
[2023-09-11] MEDS: VITAMIN D3 (cholecalciferol) 25 MCG PO (09:56)
[2023-09-11] MEDS: PEPCID 20 MG PO (09:56)
[2023-09-11] MEDS: ASPIRIN 325 MG PO (09:56)
[2023-09-11] MEDS: THERAGRAN 1 TABLET PO (09:57)
[2023-09-11] MEDS: ZESTRIL 10 MG PO (09:57)
[2023-09-11] MEDS: SENOKOT-S PO (10:01)
[2023-09-11] MEDS: ROXICODONE 5 MG PO ×3 (10:11→22:02)
[2023-09-11] MEDS: LONITEN 1.25 MG PO (10:12)
[2023-09-11 13:22] VITALS: BP 115/55; PULSE 82; O2SAT 95
--- NOTE | 2023-09-11 13:38 | CM ---
CM received call from nursing valery/Jessica at [facility] [phone] regarding dc update
Aware [employer] auth still pending
Can receive nursing tomorrow at same number if auth is approved
Discharge Disposition- [facility] pending [employer] auth
[2023-09-11 15:45] VITALS: BP 104/50
[2023-09-11] MEDS: LIPITOR 20 MG PO (16:44)
[2023-09-11] MEDS: LEXAPRO 10 MG PO (22:02)
[2023-09-11] MEDS: XANAX 0.5 MG PO (22:02)
[2023-09-11] MEDS: COLACE PO (22:08)
[2023-09-11 23:00] VITALS: BP 99/45
[2023-09-12] MEDS: ROXICODONE 5 MG PO ×4 (02:19→23:26)
[2023-09-12 07:12] LABS: Hematocrit 26.1 % (37.0-47.0); Hemoglobin 8.1 g/dL (12.0-16.0); Mean Corpuscular Hgb 29.6 pg (27.0-31.0); Mean Corpuscular Volume 95.3 fL (81.0-99.0); Platelet Count 310 10^3/uL (130-400); Red Blood Cell Count 2.74 10^6/uL (4.20-5.40); Red Cell Dist. Width 14.6 % (11.5-14.5); White Blood Cell Count 13.9 10^3/uL (4.8-10.8)
[2023-09-12 07:34] VITALS: BP 114/45
[2023-09-12 07:35] LABS: Blood Urea Nitrogen 18 mg/dl (7-17); Calcium 8.5 mg/dl (8.4-10.2); Carbon Dioxide 26 mmol/L (22-30); Chloride 99 mmol/L (98-107); Estimated Creatinine Clearance 65 ml/min; Glucose 90 mg/dl (70-99); Potassium 4.5 mmol/L (3.5-5.1); Sodium 131 mmol/L (135-145); eGFR > 60.00
--- NOTE | 2023-09-12 07:53 | W.PN.HOSP.TC ---
Today's Communication/Plan
-
see bold
Assessment / Plan
Assessment / Plan
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 Found to have a right IT fracture. Ortho saw the patient in the ED and plan is for OR tomorrow. No focal neuro
nor vascular deficits, no n/v, no CP, no SOB, no LOC, no syncope, positive for right hip pain.
#Mechanical fall resulting in displaced right IT hip fracture:
Appreciate orthopedic surgery input, s/p ORIF with a gamma nail 09/[address] Saldaña
Pain control, laxatives, PT/OT - rec SNF
Will need aspirin 325 mg x 4 weeks for DVT prophylaxis through 10/02
-Dressings to remain in place x 7-10 days.�
-Norberto to be removed at 2 weeks post op.� F/u in office in 4 weeks for repeat x-rays
-Patient now requesting short-term rehab placement, discussed with case management
-Discharge to short-term rehab when insurance authorization has been obtained
#Acute blood loss anemia
#Mild Iron Deficiency
#Anemia of chronic disease
Secondary to fracture and surgery
Hemoglobin 8.1 today, was 8.5, was 8.2, increased from 7.5 status post 1 unit of packed red blood cells on 09/08, hemoglobin was 8.1, was 11.7 upon admission
Started on oral iron, continue to monitor hemoglobin
#Acute hypoxic respiratory sufficiency
Currently requiring 2 L of oxygen, wean as tolerated
Suspect secondary to atelectasis, incentive spirometry ordered
Initially resolved and was on room air for several days
09/11, 87% on room air, 95% on 2 L
Check chest x-ray, COVID
#Leukocytosis
Patient with low-grade fever 99.7
Check chest x-ray and COVID as above
#Hyponatremia
Check TSH, free T4, start fluid restriction
#Sinus bradycardia
Resolved
# Essential hypertension
Blood pressure trending up, resumed lisinopril 09/09
#Hyponatremia
Mild
# History of recurrent small-bowel obstruction and bowel resection
Dom's procedure and status post colostomy reversal in 1989, small bowel resection in 2003, 2005 and more recently in August of 2021 at the [facility]
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
# Depression
Continue home Lexapro, Ativan as needed
DVT proph-aspirin 325 mg daily as per orthopedic surgery
GI ppx famotidine
Full Code
Total time spent to see the patient on the floor, examine the patient, review data and lab results, discuss treatment plan with patient, nursing staff around 51 minutes.
Physical Exam
General: No acute distress
HEENT: Normocephalic, Atraumatic, EOMI, MMM
Respiratory: Clear to Auscultation bilaterally
Cardiac: Normal S1/S2, Regular Rate and Rhythm
GI: Soft, Nontender, Nondistended, Normal Bowel Sounds
Extremities: No Clubbing, Cyanosis, or Edema
Musculoskeletal: Right hip incision dressed
Neuro: Nonfocal/Grossly Intact
Anticipated Discharge: Within 24 hours
Subjective/Interval History
-
Date of Service: September 12, 2023
Patient reports having a hard time sleeping. She is back on oxygen, 87% on room air, now 95% on 2 L. She denies shortness of breath. Denies coughing. No fever, no vomiting.
Objective Data
-
Labs:
Laboratory Results
09/12/23
06:00
WBC Pending
Hgb Pending
Hct Pending
Plt Count Pending
Sodium 131 L
Potassium 4.5
Chloride 99
Carbon Dioxide 26
BUN 18 H
Creatinine 0.6
Glucose 90
Calcium 8.5
Vital Signs:
Vital Signs
Temp Pulse Resp BP Pulse Ox
99.7 F 84 16 99/45 93
09/11/23 23:00 09/11/23 23:00 09/11/23 23:00 09/11/23 23:00 09/11/23 23:00
I&O
09/11/23 09/12/23 09/13/23
06:59 06:59 06:59
Intake Total 1080 / 1080 720 / 720
Balance 1080 / 1080 720 / 720
[2023-09-12] MEDS: VITAMIN C 500 MG PO (08:09)
[2023-09-12] MEDS: VITAMIN D3 (cholecalciferol) 25 MCG PO (08:09)
[2023-09-12] MEDS: THERAGRAN 1 TABLET PO (08:09)
[2023-09-12] MEDS: COLACE PO (08:10)
[2023-09-12] MEDS: ASPIRIN 325 MG PO (08:11)
[2023-09-12] MEDS: FEOSOL 325 MG PO (08:11)
[2023-09-12] MEDS: VITAMIN B-12 PO (08:12)
[2023-09-12] MEDS: ZESTRIL 10 MG PO (08:12)
[2023-09-12] MEDS: PEPCID 20 MG PO (08:12)
--- NOTE | 2023-09-12 09:37 | PTCARENOTE ---
Pt OOB in chair this morning. Complaining of feeling fatigued. 87% on RA at rest, deep breathing encouraged w/ IS, up to 1500ml, sat improved to 90% after. 2LNC placed, sating 95%. Fine crackles L base. Will continue to monitor. +2 RLEE, +1 LLEE.
Aquacell x 3 R hip, thigh and leg, noted w/shadowing of old drainage. + pulses.
[2023-09-12] MEDS: COLACE 100 MG PO ×2 (12:28→22:20)
[2023-09-12 12:36] LABS: COVID-19 Antigen Negative (Negative)
--- NOTE | 2023-09-12 14:20 | CM ---
Received insurance authorization for patient to discharge to [facility]. Auth # is [id number], approved for 13 days from 09/11/23 through to and including 09/23/23. NRD is 09/23/23. Concurrent reviews faxed to [phone],
Option #3. Patient is not medically cleared for discharge. Patient was hypoxic this AM and is now on O2. Ordered imaging. [facility], liaison, has been notified. When discharged, facility will need to change date of initial service. [facility]
has been given all auth info above.
NURSE TO NURSE REPORT # [phone]
FAX # [phone]
[2023-09-12 14:47] VITALS: BP 105/51; BP 114/53; PULSE 73; O2SAT 97
[2023-09-12 16:28] VITALS: BP 107/56
[2023-09-12] MEDS: LIPITOR 20 MG PO (17:41)
[2023-09-12] MEDS: XANAX 0.5 MG PO (22:20)
[2023-09-12] MEDS: LEXAPRO 10 MG PO (22:21)
[2023-09-12 23:25] VITALS: BP 117/51
[2023-09-13 06:40] LABS: % Basophils 0.4 % (0-2); % Eosinophils 5.9 % (0-6); % Immature Granulocytes 0.8 % (0-0.5); % Lymphocytes 12.5 % (20.5-51.1); % Monocytes 12.9 % (1.7-9.3); % Neutrophils 67.5 % (42.2-75.2); Absolute Basophils 0.1 10^3/uL (0-0.2); Absolute Eosinophils 0.7 10^3/uL (0-0.7); Absolute Immature Granulocytes 0.1 10^3/uL (0-0.05); Absolute Lymphocytes 1.5 10^3/uL (1.2-3.4); Absolute Monocytes 1.5 10^3/uL (0.1-0.6); Absolute Neutrophils 7.9 10^3/uL (1.4-6.5); Hematocrit 25.5 % (37.0-47.0); Mean Corp Hgb Conc. 31.4 g/dL (33.0-37.0); Mean Corpuscular Hgb 29.7 pg (27.0-31.0); Mean Corpuscular Volume 94.8 fL (81.0-99.0); Mean Platelet Volume 9.7 fL (7.4-10.4); Nucleated Red Blood Cells % 0 %; Platelet Count 302 10^3/uL (130-400); Red Blood Cell Count 2.69 10^6/uL (4.20-5.40); Red Cell Dist. Width 14.2 % (11.5-14.5); White Blood Cell Count 11.7 10^3/uL (4.8-10.8)
[2023-09-13 07:02] LABS: Blood Urea Nitrogen 16 mg/dl (7-17); Calcium 8.4 mg/dl (8.4-10.2); Carbon Dioxide 26 mmol/L (22-30); Chloride 98 mmol/L (98-107); Estimated Creatinine Clearance 65 ml/min; Glucose 102 mg/dl (70-99); Magnesium 2.1 mg/dl (1.6-2.3); Potassium 4.6 mmol/L (3.5-5.1); Sodium 131 mmol/L (135-145); eGFR > 60.00
[2023-09-13 07:20] VITALS: BP 109/51
--- NOTE | 2023-09-13 08:44 | W.PN.HOSP.TC ---
Today's Communication/Plan
-
Stable for discharge to short-term rehab today
Assessment / Plan
Assessment / Plan
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 Found to have a right IT fracture. Ortho saw the patient in the ED and plan is for OR tomorrow. No focal neuro
nor vascular deficits, no n/v, no CP, no SOB, no LOC, no syncope, positive for right hip pain.
#Mechanical fall resulting in displaced right IT hip fracture:
Appreciate orthopedic surgery input, s/p ORIF with a gamma nail 09/[address] Saldaña
Pain control, laxatives, PT/OT - rec SNF
Will need aspirin 325 mg x 4 weeks for DVT prophylaxis through 10/02
-Dressings to remain in place x 7-10 days.�
-Narrows to be removed at 2 weeks post op.� F/u in office in 4 weeks for repeat x-rays
-Patient now requesting short-term rehab placement, discussed with case management
-Discharge to short-term rehab today
#Acute blood loss anemia
#Mild Iron Deficiency
#Anemia of chronic disease
Secondary to fracture and surgery
Hemoglobin 8.0 today, was 8.1, was 8.5, was 8.2, increased from 7.5 status post 1 unit of packed red blood cells on 09/08, hemoglobin was 8.1, was 11.7 upon admission
Started on oral iron, continue to monitor hemoglobin
#Acute hypoxic respiratory sufficiency
Currently requiring 2 L of oxygen, wean as tolerated
Suspect secondary to atelectasis, incentive spirometry ordered
Initially resolved and was on room air for several days
09/11, 87% on room air, 95% on 2 L
COVID-negative, chest x-ray showing atelectasis
09/12 -hypoxia resolved, currently on room air, encourage incentive spirometry use upon discharge
#Leukocytosis
Patient with low-grade fever 99.7
No dysuria, no signs or symptoms of infection
#Hyponatremia
Continue fluid restriction upon discharge
#Sinus bradycardia
Resolved
# Essential hypertension
Blood pressure soft, stop lisinopril
# History of recurrent small-bowel obstruction and bowel resection
Dom's procedure and status post colostomy reversal in 1989, small bowel resection in 2003, 2005 and more recently in August of 2021 at the [facility]
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
# Depression
Continue home Lexapro, Ativan as needed
DVT proph-aspirin 325 mg daily as per orthopedic surgery
GI ppx famotidine
Full Code
Physical Exam
General: No acute distress
HEENT: Normocephalic, Atraumatic, EOMI, MMM
Respiratory: Clear to Auscultation bilaterally
Cardiac: Normal S1/S2, Regular Rate and Rhythm
GI: Soft, Nontender, Nondistended, Normal Bowel Sounds
Extremities: No Clubbing, Cyanosis
Bilateral lower extremity edema noted, right greater than left
Musculoskeletal: Right hip incision dressed
Neuro: Nonfocal/Grossly Intact
Anticipated Discharge: Today
Subjective/Interval History
-
Date of Service: September 13, 2023
Patient denies chest pain, denies shortness of breath, denies coughing. No dysuria. No fever, no vomiting.
Objective Data
-
Labs:
Laboratory Results
09/13/23
05:14
WBC 11.7 H
Hgb 8.0 L
Hct 25.5 L
Plt Count 302
Sodium 131 L
Potassium 4.6
Chloride 98
Carbon Dioxide 26
BUN 16
Creatinine 0.6
Glucose 102 H
Calcium 8.4
Vital Signs:
Vital Signs
Temp Pulse Resp BP Pulse Ox
98.7 F 71 16 109/51 96
09/13/23 07:20 09/13/23 07:20 09/13/23 07:20 09/13/23 07:20 09/13/23 07:20
I&O
09/12/23 09/13/23 09/14/23
06:59 06:59 06:59
Intake Total 720 / 720 1200 / 1200
Balance 720 / 720 1200 / 1200
[2023-09-13] MEDS: THERAGRAN 1 TABLET PO (08:45)
[2023-09-13] MEDS: FEOSOL 325 MG PO (08:45)
[2023-09-13] MEDS: VITAMIN B-12 1000 MCG PO (08:45)
[2023-09-13] MEDS: PEPCID 20 MG PO (08:45)
[2023-09-13] MEDS: ASPIRIN 325 MG PO (08:45)
[2023-09-13] MEDS: VITAMIN D3 (cholecalciferol) 25 MCG PO (08:45)
[2023-09-13] MEDS: VITAMIN C 500 MG PO (08:47)
[2023-09-13] MEDS: COLACE 100 MG PO (08:47)
[2023-09-13] MEDS: TYLENOL 1000 MG PO (08:51)
[2023-09-13] MEDS: ZESTRIL PO (09:55)
[2023-09-13 10:24] VITALS: BP 102/50; PULSE 80; O2SAT 92
--- NOTE | 2023-09-13 11:34 | W.DCSUMMARY ---
Discharge Summary
Discharge Data
Date of Admission: 09/05/23
Date of Discharge: 09/13/23
-
Pending Results: No
Hospital Course
Discharge diagnosis:
Displaced right intertrochanteric hip fracture status post surgery on 09/06/2023
Acute blood loss anemia
Iron deficiency anemia
Acute hypoxic respiratory sufficiency secondary to atelectasis
Leukocytosis
Hyponatremia
Transient sinus bradycardia
History of benign essential hypertension
Consults: Orthopedic surgery
Procedures: 06/18/2023 right hip gamma nail
Hospital course:
78-year-old female with a past medical history of hypertension, hyperlipidemia, and anxiety was admitted for an acute right intertrochanteric hip fracture status post mechanical fall. Patient was seen by orthopedic surgery, and had ORIF on
09/06/2023.
Her hospital course was complicated by acute blood loss anemia superimposed on iron deficiency anemia. Her hemoglobin dropped as low as 7.7, she was transfused 1 unit of packed red blood cells. Her hemoglobin was trended, was 8.0 on the day of
discharge. She was also started on iron supplements for low iron.
She also had acute hypoxic respiratory sufficiency secondary to atelectasis. This resolved with incentive spirometry.
She did have a leukocytosis, but did not have any signs or symptoms of infection. She remained afebrile. Her leukocytosis improved on the day of discharge.
Patient was also noted to have hyponatremia. She is discharged on a 48 ounce fluid restriction. The rehab can repeat a BMP and CBC in 3 days on.
Patient's multiple medical conditions have been optimized. She can follow-up with her primary care doctor 1 week after she leaves rehab, as well as orthopedic surgery 2 weeks postoperatively. She needs to continue aspirin 325 mg p.o. daily for DVT
prophylaxis through 10/03/2023, then resume her previous aspirin 81 mg daily.
Disposition: Short-term rehab
Discharge planning: Required 45-minute
Discharge Plan
-
Patient Disposition: [facility]/SNF
Discharge Diagnosis/Procedures: Displaced right hip fracture, mechanical fall, hypoxia, atelectasis, hyponatremia
Condition: Fair
Diet: Restrict fluids to 48 oz
Activity: As tolerated and With Walker
Driving Restrictions: Not until seen by your Dr
Bathing Restrictions: OK to Shower
Blood Work: CBC, BMP on 09/16/23
Wound Care: Maintain dressings for 7 to 10 days. If saturated contact office. May shower but not soak or submerge. Norberto to be removed 14 days from date of surgery at acute rehab or within office
Activity Restrictions/Additional Instructions:
Dressings can be removed on 09/15.
Hgb 09/12 is 8, Na is 131.
Mayer to be removed at 2 weeks post op.� F/u in office in 4 weeks for repeat x-rays.
Follow-up with orthopedic surgery in the office on 09/19, call for an appointment.
Aspirin 325 mg x 4 weeks for DVT prophylaxis through 10/02, then resume previous 81 mg daily
Follow-up with your primary care doctor 1 week after he leaves rehab.
Referrals:
Mark Saldaña MD [Active] - in one week (Contact office [phone] for routine postoperative follow-up. He discharged by acute rehab less than 2 weeks from surgery recommend outpatient follow-up at that time 2 weeks from date of surgery. Can
have sutures/norberto removed at rehab facility 2 weeks from date of surgery and then recommended outpatient follow-up at 4 weeks from date of surgery with x-rays performed of the operative extremity)
Moses Alvarez MD [Family Provider] - in one week
Prescriptions:
New
aspirin 325 mg Tablet
325 mg PO DAILY Qty: 0 0RF
polyethylene glycol 3350 [HealthyLax] 17 gram Powder In Packet
17 g PO DAILY Qty: 0 0RF
acetaminophen [Tylenol Extra Strength] 500 mg Tablet
1,000 mg PO TID Qty: 0 0RF
oxycodone 5 mg Tablet
5 mg PO Q4HPRN PRN (Reason: mild pain) Qty: 3 0RF
Continued
sucralfate 1 GRAM tablet
1 g PO ACHSPRN PRN (Reason: gi upset/issues)
famotidine 20 MG tablet
20 mg PO BID
escitalopram oxalate 10 MG tablet
10 mg PO HS
ascorbic acid (vitamin C) [Vitamin C] 500 MG tablet
500 mg PO DAILY
Glucosamine Sulf-Chondroitin 1 EACH capsule
2 tab PO DAILY
Align 4 MG capsule
1 tab PO DAILY
flaxseed-omega3,6,9-fatty acid 1 EACH capsule
1,000 mg PO BID
cyanocobalamin (vitamin B-12) 1,000 MCG tablet
1,000 mcg PO DAILY
hyoscyamine sulfate 0.125 MG tablet, sublingual
0.125 mg PO Q4HPRN PRN (Reason: bowel problems)
B-complex with vitamin C 1 CAPLET tablet
1 cap PO TUTHSA
cholecalciferol (vitamin D3) 1,000 UNITS tablet
25 mcg PO DAILY
multivitamin with folic acid [Tab-A-Aric] 1 TABLET tablet
1 tab PO DAILY
atorvastatin 20 mg Tablet
20 mg PO QPM
alendronate [Fosamax] 70 mg Tablet
70 mg PO AJFFE
minoxidil 2.5 mg Tablet
1.25 mg PO TUTHSA
Systane (PF) 0.4-0.3 % Dropperette
1 drp BOTH EYES BIDPRN PRN (Reason: dryness)
diphenhydramine HCl 50 mg Capsule
50 mg PO HS PRN (Reason: if waking up after xanax and unable to sleep again)
alprazolam 0.5 MG tablet
0.5 mg PO HSPRN PRN (Reason: insomnia) Qty: 2 0RF
Discontinued
lisinopril 20 MG tablet
20 mg PO DAILY
Potassium-99 99 MG tablet
99 mg PO DAILY
aspirin 81 mg Tablet,Chewable
81 mg PO DAILY
Discharge Orders:
Discharge Patient (As Directed); Ordered 09/13/23
Ordered By: Kulwinder Spence
Discharge Date and Time
Print Language: ROMANIAN
--- NOTE | 2023-09-13 12:05 | CM ---
CM reviewed chart and noted dc order
CM confirmed rehab bed at [facility]/TCU with admission/[facility]
Bedside meeting with pt
Update provided- she requested BLS be arranged
Discussion with nursing and PT along with chart review- no medical necessity
Pt declined private pay BLS- in agreement with [facility] transport
Van scheduled for 3:30pm picking supervisor Acute Care- number provided for pt to provide payment
IMM completed verbally- copy provided
Pasqu[facility] auth approval received day prior
Discharge Disposition- [facility] via [facility] 3:30 pm pickup
NURSE TO NURSE REPORT # [phone]
FAX # [phone]
[2023-09-13 13:30] VITALS: BP 114/61
== END 2023-09-13 17:08 | DRG 481 ==
LOC: 2 SOUTH 19:18
PROVIDERS: ADMITTING PHYSICIAN Internal Medicine; ATTENDING PHYSICIAN Family Medicine; CONSULT PHYSICIAN Orthopaedic Surgery; EMERGENCY PHYSICIAN Student in an Organized Health Care Education/Training Program; FAMILY PHYSICIAN Internal Medicine
PROC: 0QS604Z Reposition Right Upper Femur with Internal Fixation Device, Open Approach (ICD-10-PCS; 2023-09-06)
PROC: 30233N1 Transfusion of Nonautologous Red Blood Cells into Peripheral Vein, Percutaneous Approach (ICD-10-PCS; 2023-09-09)
DX: M80.051A Age-related osteoporosis with current pathological fracture, right femur, initial encounter for fracture (principal); D62 Acute posthemorrhagic anemia; E87.1 Hypo-osmolality and hyponatremia; J98.11 Atelectasis; I10 Essential (primary) hypertension; F32.A Depression, unspecified; K21.9 Gastro-esophageal reflux disease without esophagitis; R00.1 Bradycardia, unspecified; R09.02 Hypoxemia; D50.9 Iron deficiency anemia, unspecified; D72.829 Elevated white blood cell count, unspecified; R06.89 Other abnormalities of breathing; W01.0XXA Fall on same level from slipping, tripping and stumbling without subsequent striking against object, initial encounter; Y93.01 Activity, walking, marching and hiking; Y92.89 Other specified places as the place of occurrence of the external cause; Y99.0 Civilian activity done for income or pay; Z11.52 Encounter for screening for COVID-19; Z88.1 Allergy status to other antibiotic agents; Z88.2 Allergy status to sulfonamides; Z79.82 Long term (current) use of aspirin; Z87.19 Personal history of other diseases of the digestive system; Z96.651 Presence of right artificial knee joint
CPT/HCPCS: 71045; 73502; 73552; 74018; 76000; 80048; 80053; 82607; 82746; 83540; 83550; 83735; 84100; 85025; 85027; 85610; 85730; 86850; 86900; 86901; 86920; 87811; 93005; 96374; 96375; 96376; 97116; 97162; 97166; 97530; 97535; 99285; C1713; C1769; P9058

== ENCOUNTER → 2024-06-30 15:01 | Outpatient (REF) | payer OTHER, SELFPAY | LOC: RAD 15:01 | PROVIDERS: ATTENDING PHYSICIAN Podiatrist Foot & Ankle Surgery; FAMILY PHYSICIAN Internal Medicine | DX: I73.9 Peripheral vascular disease, unspecified (principal) | CPT/HCPCS: 93925 ==

== ENCOUNTER 2024-10-28 13:26 | Day surgery (SDC) | payer OTHER, SELFPAY ==
[2024-10-28] VITALS (26 sets, daily range): BP systolic 118–162; BP diastolic 43–123; O2SAT 96; BMI 24.0
[2024-10-28] MEDS: TYLENOL 1000 MG PO (03:00)
[2024-10-28] MEDS: MORPHINE SULFATE 2 MG IV ×2 (05:59→19:59)
--- NOTE | 2024-10-28 06:13 | ED.GENMED ---
History of Present Illness
General
Chief Complaint: Musculo-Skeletal Complaint
Source: patient
Exam Limitations: none
Time Seen by Provider: 10/28/24 06:03
History of Present Illness
History of Present Illness:
See MDM
Past History
Past History
ED Past Medical History: Other (Recurrent bowel obstruction, intra-abdominal adhesions, diverticulitis, intracranial hemorrhage)
ED Past Surgical History: Bowel resection and Orthopedic
Social History
Tobacco: Non-smoker
Alcohol: None
Phy Exam
Physical Exam
Physical Exam:
See MDM
Course
Orders/Labs/Results
Orders:
Orders
10/28/24 01:25
Wrist, Left 3 Views CR [CR Wrist - Left Min 3 Views] Urgent
Comment:
Reason For Exam: fall with deformity
10/28/24 01:33
Hip, Right 2-3 Views [CR Hip - RT w/wo Pel 2-3 Vw*] Urgent
Comment:
Reason For Exam: fall unable to bear weight
Include a pelvis x-ray?: Yes
10/28/24 02:55
Acetaminophen [Tylenol] 1,000 mg .ROUTE .STK-MED ONE
10/28/24 02:56
Acetaminophen [Tylenol] 1,000 mg PO NOW STA
10/28/24 05:57
Morphine Sulfate 2 mg .ROUTE .STK-MED ONE
10/28/24 05:58
Morphine Sulfate 2 mg IV NOW STA
10/28/24 08:05
Propofol [Diprivan] 20 ml .ROUTE .STK-MED
10/28/24 08:20
Wrist, Left 2 Views CR [CR Wrist - Left Min 2 Views] Urgent
Comment:
Reason For Exam: reduction
10/28/24 08:38
Oxycodone/Acetaminophen [Percocet 5/325] 1 tablet PO NOW STA
10/28/24 11:04
Case Management Consult ONCE
Case Management Consult: Discharge Planning
10/28/24 11:41
Pt Eval And Treat Urgent
Treatment: Can weight bear. Avoid use of Left wrist
Activity Level: Ambulate
Vital Signs
Initial and Last Documented VS:
Initial Vital Signs
Temp Pulse Resp BP Pulse Ox
98.3 F 62 16 158/70 96
10/28/24 01:14 10/28/24 01:14 10/28/24 01:14 10/28/24 01:14 10/28/24 01:14
Last Documented Vital Signs
Temp Pulse Resp BP Pulse Ox
98.3 F 53 16 162/43 94
10/28/24 01:14 10/28/24 11:05 10/28/24 11:05 10/28/24 11:00 10/28/24 11:00
Procedures
Moderate Sedation
ASA Risk Score: Class II
Chart and allergies reviewed: Yes
Consent for anesthesia obtained: Yes
Time out completed (validating right patient & procedure): Yes
Moderate Sedation Start Time(when first medication is given): 08:17
History of difficult intubation: No
Airway free of obstruction: Yes
Patient has a gag reflex: Yes
Patient is able to open mouth: Yes
Patient has no dentures: Yes
Patient has no loose teeth: Yes
Medication administered by Provider during Moderate Sedation: IV Propofol (mg)
Total dose administered: 75
Time drug administered: 08:17
Moderate Sedation Procedure End Time: 08:30
Comment: Time out 815
Joint/Fracture Reduction
Left Distal Radial Wrist:
Indication for procedure:: Left radius fracture
Procedure completed by: Vincent Siddiqui DO
Consent form signed: Yes
Joint reduced: with anesthesia sedation
Injury was: closed
Further treatement: needs further treatment
Post reduction exam: stable
Capillary Refill: normal
Peripheral Pulses: radial (left): 2+
MDM/Problems Addressed
Differential Diagnosis Includes:
HPI and MDM Narrative:
79-year-old female presenting with a trip and fall. Patient had walked to her car overnight. She walked through the grass and she tripped. She landed on her right hip and her left wrist. She is right-hand dominant. She denies numbness or
tingling
X-rays were done prior to my evaluation and there is concern for a pelvic fracture. Patient states she is able to walk but it is painful. She has a clear deformity to her left wrist with an obvious distal radius fracture. The patient states that
she feels that she can go home. Will consent for moderate sedation and reduction of the wrist and will evaluate her ambulation
Physical exam
General: Well appearing and non-toxic
HEENT: protecting airway
Neck: appears supple
CV: No evidence of cyanosis
Resp: No accessory muscle use
Abd: Non-distended
Extremities: Dinner fork deformity to the left wrist. Distal extremity otherwise neurovascularly intact. No hip tenderness on palpation. Pelvis otherwise stable
Neuro: alert
Psych: Normal affect
Skin: Intact
Problems Addressed including Acute and Chronic Conditions affecting care:
1. Left wrist fracture
Acuity: acute
Prognosis: unstable
Details: Patient will ultimately require surgery. Given the deformity, will reduce
2. Right pelvic fracture
Acuity: acute
Prognosis: stable
Details: Will evaluate ambulation and control pain
Updates
Patient tolerated sedation and reduction well. Will give ambulation trial before discharge
Patient having trouble ambulating. Will have case management and PT evaluate
Case discussed with case management who is requesting admission under observation as she cannot be placed from the emergency department today
Differential Diagnosis (but not limited to): Pelvic fracture, hip fracture, wrist fracture
Testing considered: CT head but she denies head trauma
Drug therapy (if applicable): OTC meds, please see d/c instruction regarding Rx drugs
Amount and/or Complexity of Data Reviewed
Clinical info obtained from: Patient
External data reviewed: N/A
Labs I independently reviewed (but not limited to): N/A
Radiology: X-ray independently reviewed: Right pelvic fracture and left distal radius fracture
Pulse Ox: not hypoxic
EKG independently reviewed: N/A
Lead Loader: N/A
Critical Care: N/A
Risk of Complication:
Social Determinants of health: Good social support
Discussed with other providers: Hospitalist
Escalation of Care includes Admit/Obs: Given her inability to ambulate, will admit for placement
Occasional wrong word or 'sound a like' substitutions may have occurred due to the inherent limitations of voice recognition software. Read the chart carefully and recognize, using context, where substitutions have occurred.
*Critical Care Note
Total Time (30-74mins, 75-104mins- exclusive of procedures): Not Applicable
ED Attending Note
-
Portions of this chart may have been created with voice recognition software.� Occasional wrong word or��sound alike� substitutions may have occurred due to the inherent limitations of voice recognition software.
Discharge Plan
Departure
Patient Disposition: Admit
Date of Disposition: 10/28/24
Time of Disposition: 08:39
Admit to: Med/Surg
Presentation/result/management discussed w/ accepting MD/DO: Hospitalist
Patient with high blood pressure during this ER visit?: Yes
Discharge Problem:
Fracture of left wrist, Closed fracture of right pelvis
Instructions: Wrist fracture, MODERATE SEDATION ADULT, BLOOD PRESSURE
Prescriptions:
New
oxycodone 5 mg tablet
5 mg PO Q8H PRN (Reason: Pain) Qty: 14 0RF
No Action
sucralfate 1 GRAM tablet
1 g PO ACHSPRN PRN (Reason: gi upset/issues)
famotidine 20 MG tablet
20 mg PO BID
escitalopram oxalate 10 MG tablet
10 mg PO HS
ascorbic acid (vitamin C) [Vitamin C] 500 MG tablet
500 mg PO DAILY
cyanocobalamin (vitamin B-12) 1,000 MCG tablet
1,000 mcg PO DAILY
hyoscyamine sulfate 0.125 MG tablet, sublingual
0.125 mg PO Q4HPRN PRN (Reason: bowel problems)
cholecalciferol (vitamin D3) 1,000 UNITS tablet
25 mcg PO DAILY
multivitamin with folic acid [Tab-A-Aric] 1 TABLET tablet
1 tab PO DAILY
atorvastatin 20 mg Tablet
20 mg PO QPM
minoxidil 2.5 mg Tablet
1.25 mg PO DAILY
Systane (PF) 0.4-0.3 % Dropperette
1 drp BOTH EYES BIDPRN PRN (Reason: dryness)
diphenhydramine HCl 50 mg Capsule
50 mg PO HS PRN (Reason: if waking up after xanax and unable to sleep again)
alprazolam 0.5 MG tablet
0.5 mg PO HSPRN PRN (Reason: insomnia) Qty: 2 0RF
lisinopril 20 mg Tablet
20 mg PO DAILY
aspirin
81 mg PO DAILY
Referrals:
Moses Alvarez MD [Family Provider] -
Panchito Winter MD [Active] -
Interventions
Interventions:
*Risk Screen - Suicide Last Done: 10/28/24 01:14
*General Assessment Last Done: 10/28/24 01:14
*Neglect/Abuse Screening Last Done: 10/28/24 01:14
*ED- Fall Risk Assessment Last Done: 10/28/24 01:14
*ED COVID-19 Vaccine History Last Done: 10/28/24 01:14
ED-Musculoskeletal Assessment Last Done: 10/28/24 03:39
Discharge Date and Time
Print Language: JORDANIAN
[2024-10-28] MEDS: PERCOCET 5/325 1 TABLET PO (08:54)
--- NOTE | 2024-10-28 09:06 | EDRN ---
Pt is awaiting for her spouse Ryne Dowd to come in w/ her cane so she can attempt to ambulate as has R pubic fracture and L wrist.
--- NOTE | 2024-10-28 09:09 | EDRN ---
L wrist splint in place.
--- NOTE | 2024-10-28 10:24 | EDRN ---
Spouse arrived w/ cane and pt attempted to get OOB and unable to get OOB r/t pain. Dr. Siddiqui informed and is placing an order for PT and case management at this time.
--- NOTE | 2024-10-28 10:30 | EDRN ---
Pt unable to get OOB due to pain in R pubic area. Pain was rated as 10/10 w/ movement.
--- NOTE | 2024-10-28 11:55 | EDRN ---
This RN spoke w/ Dario BASHIR about pt and he said r/t to pt's insurance she will need observation admit for rehab placement. Dr. Siddiqui informed via TT at this time as CM going up to speak w/ Dr. Siddiqui.
--- NOTE | 2024-10-28 12:15 | EDRN ---
PT just left patients room and they were unable to get pt OOB r/t to severe R pubic pain at 10/10 w/ movement.
--- NOTE | 2024-10-28 12:22 | CM ---
Addendum entered by Dilshad Bentley 10/28/24 15:46:
CM spoke to [facility] apartment coordinator Darleen [phone] and she confirmed that pt will be accepted when medically stable and an auth is available
[facility]
Accepting physician Livan Edi
CM initiated an auth from [facility] for SNF level of acre at [facility] for tomorrow 10/29/24. Pending reference number:[id number] Requested pt's clinical faxed to [facility] for a review at [phone]
Awaiting for an auth.
D/C khalil: [facility] when medically stable and an auth available.
CM will follow to assist pt with discharge to [facility].
Addendum entered by Dilshad Bentley 10/28/24 14:06:
[facility] responded on [facility] they will accept the pt.
CM asked to provide facility NPI and accepting physician NPI to initiate an authorization from [facility]. As soon as NPIs will be available, CM will initiate an auth
Original Note:
CM following re: discharge planning.
CM consulted to assist the pt with discharge to [facility].
Reviewed pt's chart, met with pt.
Pt is an 79 year old female, arrived to ED after she fell and landed on her right hip and her left wrist. She is right-hand dominant.
PT and OT evaluating the pt.
Pt reports she lives with 2SH, 2 steps to enter, has 2 daughters: one live in [place] [facility] [place] [facility] [place] and another in [place]. Pt described herself as independent in all areas [employer]. Pt stated she wants to go to [facility] for a short
term rehab. Pt stated she was at [facility] after she had hip fx and liked there very much. Pt reports she does not use any mobile devices.
PCP: Jerzy Alvarez
pharmacy: [facility].
D/C plan: : [facility]. Pt will need an auth from [facility]
CM will follow to assist pt with discharge to a preferred and requested [facility].
--- NOTE | 2024-10-28 12:35 | HPS.HSE ---
Family Physician
-
Family Physician: Moses Alvarez MD
Chief Complaint
-
mechanical fall
History of Present Illness
79-year-old female with past medical history of hypertension, small bowel obstruction, anxiety, depression, GERD presenting s/p fall. Patient had walked to her car overnight. She walked through the grass and some how fell and landed on her
buttock and left side. she was not able to get up from the floor. denied SHEPHERD,dizzy or syncope. denied fever, chills, chest pain,sob. denied abdominal pain,n,v,d. denied dysuria or hematuria.
left wrist was reduced at the bedside. patient was evaluated by PT and requiring rehab.
Medical History
Past Medical History
Past Medical History: Reports Other
Additional Past Medical History:
HTN
small bowel obstruction
GERD
Past Surgical History: Reports Other
Additional Past Surgical History:
Right TKA
multiple abdominal surgery
Social History
Tobacco: Non-smoker
Alcohol: None
Drug: None
Personal:
Living: With Family
Employment: Employed
Family History
Family History: Not pertinent
Allergies / Home Medications
Allergies reflects when Allergies were last updated in [employer].
Home Medications with original date entered in [employer]
Allergy/Medication List:
Allergies
Allergy/AdvReac Type Severity Reaction Status Date / Time
levofloxacin [From Levaquin] Allergy Unknown Verified 03/15/23 17:40
sorbitol Allergy DIARRHEA Verified 03/15/23 17:40
sulfamethoxazole Allergy Unknown Verified 03/15/23 17:40
[From Bactrim]
trimethoprim [From Bactrim] Allergy Unknown Verified 03/15/23 17:40
Home Medications
escitalopram oxalate 10 mg tablet 10 mg PO HS Mental Health/Anxiety 05/19/21
famotidine 20 mg tablet 20 mg PO BID Gastrointestinal issue 05/19/21
sucralfate 1 gram tablet 1 g PO ACHSPRN PRN gi upset/issues 05/19/21
ascorbic acid (vitamin C) 500 mg tablet (Vitamin C) 500 mg PO DAILY Supplement 06/25/21
cholecalciferol (vitamin D3) 25 mcg (1,000 unit) tablet 25 mcg PO DAILY Supplement 06/25/21
cyanocobalamin (vitamin B-12) 1,000 mcg tablet 1,000 mcg PO DAILY Supplement 06/25/21
hyoscyamine sulfate 0.125 mg sublingual tablet 0.125 mg PO Q4HPRN PRN bowel problems 06/25/21
multivitamin with folic acid 400 mcg tablet (Tab-A-Aric) 1 tab PO DAILY Supplement 06/25/21
atorvastatin 20 mg tablet 20 mg PO QPM High cholesterol 02/16/22
minoxidil 2.5 mg tablet 1.25 mg PO DAILY Blood Pressure 09/06/23
peg 400-propylene glycol (PF) 0.4 %-0.3 % eye drops in a dropperette (Systane (PF)) 1 drp BOTH EYES BIDPRN PRN dryness 09/06/23
diphenhydramine HCl 50 mg capsule 50 mg PO HS PRN if waking up after xanax and unable to sleep again 09/07/23
alprazolam 0.5 mg tablet 0.5 mg PO HSPRN PRN insomnia #2 tabs 09/13/23
aspirin 81 mg PO DAILY 10/28/24
lisinopril 20 mg tablet 20 mg PO DAILY 10/28/24
oxycodone 5 mg tablet 5 mg PO Q8H PRN Pain #14 tabs 10/28/24
Review of Systems
-
Constitutional: Reports No Symptoms
EENT: Reports No Symptoms
Respiratory: Reports No Symptoms
Cardiac: Reports No Symptoms
Abdomen/GI: Reports No Symptoms
: Reports No Symptoms
Musculoskeletal: Reports Other (left arm and right pelvis pain)
Skin: Reports No Symptoms
Neurological: Reports No Symptoms
Endocrine: Reports No Symptoms
Hematologic/Lymphatic: Reports No Symptoms
Psych: Reports No Symptoms
Physical Exam
Vital Signs
Vital Signs
Temp Pulse Resp BP Pulse Ox
98.3 F 58 16 142/79 95
10/28/24 01:14 10/28/24 12:18 10/28/24 12:18 10/28/24 12:18 10/28/24 12:18
Physical Exam
General: Well Developed, Well Nourished and No Apparent Distress
HEENT: NormoCephalic, Moist mucous membranes and Atraumatic
Respiratory: Clear
Cardiac: S1/S2 and Regular Rhythm; No Murmur or Rub
GI: Soft, Non Tender, Non Distended and Normal Bowel Sounds; No Organomegaly
Rectal: Deferred by Provider
Musculoskeletal: No Clubbing, No Cyanosis, No Edema and Other (left wrist in splint)
Skin: No Rash
Neuro: AO x 3 and Nonfocal/grossly intact
Psych: Calm
Data Reviewed
-
Diagnostic Radiology: Report Reviewed by me
Lab Data: Labs Reviewed by me
Impression/Plan
-
# Mechanical fall with right pelvis and left wrist fracture
-left wrist reduced at the bedside and splint placed
- PT/OT consult
- Case management consulted for place
- Left wrist fracture with impression of Splint material present. Interval reduction of the comminuted distal radial fracture with improved alignment, now near anatomic with minimal residual foreshortening and radial displacement. There is
redemonstration of the ossific fragment adjacent to the ulnar styloid which appears well-corticated and is likely sequelae of prior trauma.
- Hip x-ray with impression here is an oblique fracture of the right superior pubic ramus.Prior intramedullary bk and screw fixation of the proximal right femur without evidence of periprosthetic fracture or dislocation.
- Wrist x-ray with impression Comminuted and displaced distal radial fracture with dorsal angulation, foreshortening and likely intra-articular extension.
# Essential hypertension
#HLD
-statin,lisinopril, mixodil continued
# History of recurrent small-bowel obstruction and bowel resection
Dom's procedure and status post colostomy reversal in 1989, small bowel resection in 2003, 2005 and more recently in August of 2021 at the [facility]
#GERD
-PPI continued
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
# Depression
-Continue home Lexapro, Ativan as needed
#DVT proph
-Lovenox
#CODE status
-full code
--- NOTE | 2024-10-28 12:57 | EDRN ---
Dr. Woods in room w/ pt at this time.
--- NOTE | 2024-10-28 12:59 | W.PN.UPDATE ---
Update Note
Progress Note Update
This is an addendum to the H&P written by Kandice Rm on 10/28/2024. Patient seen and examined independently with HAND PATTERN MARKER.
79-year-old female past medical history of hypertension, recurrent small bowel obstructions, bowel resection and lysis of adhesions, anxiety, depression, GERD, chronic anemia, sinus bradycardia, presenting with mechanical fall resulting in oblique
fracture of the right superior pubic ramus and left distal radius fracture.
Patient underwent reduction of the left radius fracture with splint placed.
Case management cannot place to rehab today.
[2024-10-28] MEDS: TYLENOL 650 MG PO ×2 (17:01→20:00)
[2024-10-28] MEDS: LOVENOX 40 MG SC (17:17)
[2024-10-28] MEDS: LIPITOR 20 MG PO (17:17)
[2024-10-28] MEDS: ROXICODONE 5 MG PO ×2 (17:42→21:47)
--- NOTE | 2024-10-28 18:27 | TRANSFER ---
pt arrived to unit from ED via stretcher. pt pulled over to bed from stretcher. pt remains with purwick in placed related to limited mobility from pelvic fx. assessment and admissions completed by this nurse. pt oriented to unit. this nurse reached
out to hospitalist for PRN for severe pain. PRN 5mg Oxy PO ordered and administered, see mar,
[2024-10-28] MEDS: COLACE 100 MG PO (20:00)
[2024-10-28] MEDS: SENOKOT 17.2 MG PO (20:00)
[2024-10-28] MEDS: PEPCID 20 MG PO (20:00)
[2024-10-28] MEDS: LEXAPRO 10 MG PO (21:47)
[2024-10-29] MEDS: TYLENOL PO ×3 (03:47→20:33)
[2024-10-29 07:22] VITALS: BP 160/80
[2024-10-29] MEDS: SENOKOT 17.2 MG PO ×2 (07:58→20:30)
[2024-10-29] MEDS: COLACE 100 MG PO ×2 (07:58→20:30)
[2024-10-29] MEDS: VITAMIN D3 (cholecalciferol) 25 MCG PO (07:58)
[2024-10-29] MEDS: TYLENOL 650 MG PO ×4 (07:58→23:48)
[2024-10-29] MEDS: VITAMIN B-12 1000 MCG PO (07:58)
[2024-10-29] MEDS: THERAGRAN 1 TABLET PO (07:58)
[2024-10-29] MEDS: PEPCID 20 MG PO ×2 (07:58→20:30)
[2024-10-29] MEDS: ZESTRIL 20 MG PO (07:58)
[2024-10-29] MEDS: LONITEN 1.25 MG PO (07:59)
[2024-10-29] MEDS: ASPIR LOW (ENTERIC COATED) 81 MG PO (07:59)
--- NOTE | 2024-10-29 09:57 | W.PN.HOSP.TC ---
Today's Communication/Plan
-
Urinalysis
Bladder scan
Ortho consult
PT/OT
Continue analgesics
Assessment / Plan
Assessment / Plan
Gen-AAOx3, NAD
HEENT-NC, AT, anicteric, clear oral mm
Neck-supple
CV-reg, no M, +S1/S2
Lungs-clear B/L
Abd-soft, NT, ND
Ext-no edema
Musculoskeletal-no cyanosis, clubbing, left arm Roland wrap
Skin-warm and dry
Neuro-grossly non-focal
Psych-calm, cooperative
Acute traumatic right pelvic fracture -due to fall and underlying osteoporosis.
Acute traumatic left distal radial fracture -due to fall and underlying osteoporosis.
Will consult orthopedics, known to Dr. Saldaña.
PT/OT. Continue analgesics.
Urinary urgency -PureWick in place. Check bladder scan, urinalysis.
Essential hypertension -resume home meds.
Hyperlipidemia -atorvastatin.
GERD
History of recurrent small bowel obstruction
Depression
Full code
Dispo - anticipate SNF on discharge. Case management assisting.
Anticipated Discharge: Within 24 hours
Subjective/Interval History
-
Date of Service: October 29, 2024
Patient seen and examined. Does have urinary urgency, denies dysuria.
Objective Data
-
Vital Signs:
Vital Signs
Temp Pulse Resp BP Pulse Ox
98.1 F 67 17 160/80 94
10/29/24 07:22 10/29/24 07:22 10/29/24 07:22 10/29/24 07:22 10/29/24 07:22
I&O
10/28/24 10/29/24 10/30/24
06:59 06:59 06:59
Intake Total 240 / 240
Balance 240 / 240
Review of Systems
-
History Source: Patient
All other systems: Reviewed and negative
--- NOTE | 2024-10-29 11:04 | W.PN.UPDATE ---
Update Note
Progress Note Update
Full orthopedic consult dictated: Patient seen with Dr. Saldaña.
Dx: Right superior ramus fracture and left comminuted/displaced distal radius fracture
Plan: Patient has sustained superior ramus fracture along the right hemipelvis. This may be weightbearing as pain permits with walker. Conservative treatment modalities to help with pain. Left wrist unfortunately is going to require open
treatment by one of our hand surgeons later this week. She will continue with splint, ice with elevation to above the level of her heart and nonweightbearing left upper extremity.
[2024-10-29] MEDS: ROXICODONE 5 MG PO ×3 (11:11→20:31)
[2024-10-29 12:15] VITALS: BP 116/59; PULSE 80; O2SAT 93
--- NOTE | 2024-10-29 12:35 | CM ---
CM obtained [facility] authorization for transfer to [facility]. CM spoke with Jessika at [facility] to confirm bed availability for transfer today.
Certification Number [id number]
CERTIFIED IN TOTAL
Service Type Code 1
AG - Custodial Care
Start Date 2024-10-29 End Date 2024-11-04
Pt not ready for discharge due to possible ORIF of hand on Wednesday.
Plan: CM to follow to coordinate transfer to SNF when medically stable
[2024-10-29 13:06] LABS: % Basophils 0.3 % (0-2); % Eosinophils 0.9 % (0-6); % Immature Granulocytes 0.3 % (0-0.5); % Lymphocytes 8.3 % (20.5-51.1); % Monocytes 7.3 % (1.7-9.3); % Neutrophils 82.9 % (42.2-75.2); Absolute Eosinophils 0.1 10^3/uL (0-0.7); Absolute Monocytes 0.9 10^3/uL (0.1-0.6); Absolute Neutrophils 10.1 10^3/uL (1.4-6.5); Hematocrit 33.5 % (37.0-47.0); Mean Corp Hgb Conc. 32.8 g/dL (33.0-37.0); Mean Corpuscular Hgb 30.3 pg (27.0-31.0); Mean Corpuscular Volume 92.3 fL (81.0-99.0); Nucleated Red Blood Cells % 0 %; Platelet Count 271 10^3/uL (130-400); Red Blood Cell Count 3.63 10^6/uL (4.20-5.40); Red Cell Dist. Width 13.9 % (11.5-14.5); White Blood Cell Count 12.2 10^3/uL (4.8-10.8)
[2024-10-29 13:25] LABS: Blood Urea Nitrogen 15 mg/dl (7-17); Calcium 9.4 mg/dl (8.4-10.2); Carbon Dioxide 26 mmol/L (22-30); Chloride 107 mmol/L (98-107); Estimated Creatinine Clearance 66 ml/min; Glucose 118 mg/dl (70-99); Potassium 4.5 mmol/L (3.5-5.1); Sodium 138 mmol/L (135-145); eGFR > 60.00
[2024-10-29 13:33] LABS: Urine Albumin 2+ (Neg - Trace); Urine Bilirubin Negative (Negative); Urine Character Cloudy (Clear); Urine Color Yellow; Urine Glucose Negative (Negative); Urine Ketone Negative (Negative); Urine Leukocyte 3+ (Negative); Urine Nitrite Negative (Negative); Urine Occult Blood 3+ (Negative); Urine Specific Gravity 1.015 (<1.030); Urine Urobilinogen Negative (Neg - 1+)
[2024-10-29 14:11] LABS: Urine Bacteria Many (Negative)
[2024-10-29 14:12] LABS: Urine White Cell 60-70 /HPF (0-5)
[2024-10-29 15:00] VITALS: BP 138/66
[2024-10-29] MEDS: LOVENOX 40 MG SC (18:29)
[2024-10-29] MEDS: LIPITOR 20 MG PO (18:29)
[2024-10-29] MEDS: LEXAPRO 10 MG PO (21:33)
[2024-10-30 02:19] VITALS: BP 124/70
[2024-10-30] MEDS: TYLENOL 650 MG PO ×5 (04:01→21:16)
[2024-10-30 07:05] VITALS: BP 129/51
--- NOTE | 2024-10-30 07:12 | W.PN.UPDATE ---
Update Note
Progress Note Update
Patient resting comfortably. Will speak with Dr. Winter this AM. Tentative plan for ORIF left wrist on Wednesday with Dr. Winter.
[2024-10-30] MEDS: VITAMIN D3 (cholecalciferol) 25 MCG PO (08:54)
[2024-10-30] MEDS: ASPIR LOW (ENTERIC COATED) 81 MG PO (08:54)
[2024-10-30] MEDS: PEPCID 20 MG PO (08:54)
[2024-10-30] MEDS: THERAGRAN 1 TABLET PO (08:54)
[2024-10-30] MEDS: COLACE 100 MG PO (08:54)
[2024-10-30] MEDS: SENOKOT 17.2 MG PO (08:54)
[2024-10-30] MEDS: VITAMIN B-12 1000 MCG PO (08:54)
[2024-10-30] MEDS: ZESTRIL 20 MG PO (08:54)
[2024-10-30] MEDS: LONITEN 1.25 MG PO (08:54)
[2024-10-30] MEDS: ROXICODONE 5 MG PO ×2 (09:00→17:50)
[2024-10-30 09:36] LABS: % Basophils 0.4 % (0-2); % Eosinophils 2.9 % (0-6); % Immature Granulocytes 0.3 % (0-0.5); % Lymphocytes 13.4 % (20.5-51.1); % Monocytes 6.4 % (1.7-9.3); % Neutrophils 76.6 % (42.2-75.2); Absolute Basophils 0.1 10^3/uL (0-0.2); Absolute Eosinophils 0.4 10^3/uL (0-0.7); Absolute Lymphocytes 1.6 10^3/uL (1.2-3.4); Absolute Monocytes 0.8 10^3/uL (0.1-0.6); Absolute Neutrophils 9.2 10^3/uL (1.4-6.5); Hematocrit 31.8 % (37.0-47.0); Hemoglobin 10.2 g/dL (12.0-16.0); Mean Corp Hgb Conc. 32.1 g/dL (33.0-37.0); Mean Corpuscular Hgb 30.4 pg (27.0-31.0); Mean Corpuscular Volume 94.9 fL (81.0-99.0); Mean Platelet Volume 10.2 fL (7.4-10.4); Nucleated Red Blood Cells % 0 %; Platelet Count 221 10^3/uL (130-400); Red Blood Cell Count 3.35 10^6/uL (4.20-5.40); White Blood Cell Count 12.1 10^3/uL (4.8-10.8)
[2024-10-30 09:41] LABS: Blood Urea Nitrogen 23 mg/dl (7-17); Calcium 9.2 mg/dl (8.4-10.2); Carbon Dioxide 29 mmol/L (22-30); Chloride 107 mmol/L (98-107); Estimated Creatinine Clearance 50 ml/min; Glucose 132 mg/dl (70-99); Potassium 4.6 mmol/L (3.5-5.1); Sodium 139 mmol/L (135-145); eGFR > 60.00
--- NOTE | 2024-10-30 10:41 | CM ---
Auth obtained for [facility]inor[facility] Rosen kae at [facility] Certification Number [id number] CERTIFIED IN TOTAL Start Date 2024-10-29 End Date 2024-11-04
As per Ortho pt for surgery 10/31/24 for ORIF l wrist.
Will need PT Ot reordered postop.
If auth by time dc. May need to obtained another auth.
PLAN Call [facility] for bed availability check on auth
[2024-10-30 11:20] VITALS: BP 109/63; PULSE 75; O2SAT 94
--- NOTE | 2024-10-30 11:37 | W.PN.HOSP.TC ---
Today's Communication/Plan
-
Monitor vital signs
see plan
Possible OR tomorrow per Ortho
Check urine analysis with reflex to culture, if positive then we will start antibiotics
PT/OT
Assessment / Plan
Assessment / Plan
Gen-AAOx3, NAD
HEENT-NC, AT, anicteric, clear oral mm
Neck-supple
CV-reg, no M, +S1/S2
Lungs-clear B/L
Abd-soft, NT, ND
Ext-no edema
Musculoskeletal- left arm Roland wrap
Skin-warm and dry
Neuro-grossly non-focal
Psych-calm, cooperative
Acute traumatic right pelvic fracture -due to fall and underlying osteoporosis.
Acute traumatic left distal radial fracture -due to fall and underlying osteoporosis.
consulted orthopedics, known to Dr. Saldaña. Tentative OR 10/[address] Winter
PT/OT. Continue analgesics.
Urinary urgency -PureWick in place. Check bladder scan,. check Ua with reflex to urine cx
Essential hypertension -resume home meds.
Hyperlipidemia -atorvastatin.
GERD
History of recurrent small bowel obstruction
Depression
Full code
Dispo - anticipate SNF on discharge. Case management assisting.
Anticipated Discharge: 24 - 48 hours
Subjective/Interval History
-
Date of Service: October 30, 2024
Does have some pain
Objective Data
-
Labs:
Laboratory Results
10/30/24
08:55
WBC 12.1 H
Hgb 10.2 L
Hct 31.8 L
Plt Count 221
Sodium 139
Potassium 4.6
Chloride 107
Carbon Dioxide 29
BUN 23 H
Creatinine 0.8
Glucose 132 H
Calcium 9.2
Vital Signs:
Vital Signs
Temp Pulse Resp BP Pulse Ox
98.8 F 59 17 129/51 95
10/30/24 07:05 10/30/24 08:54 10/30/24 07:05 10/30/24 08:54 10/30/24 07:05
I&O
10/29/24 10/30/24 10/31/24
06:59 06:59 06:59
Intake Total 240 / 240 1020 / 1020
Output Total 600 / 600
Balance 240 / 240 420 / 420
[2024-10-30 11:59] VITALS: BP 109/63; PULSE 77; O2SAT 94
--- NOTE | 2024-10-30 13:36 | W.PN.UPDATE ---
Update Note
Progress Note Update
Patient seen and examined
Left distal radius fracture, comminuted and displaced
Will proceed with surgery tomorrow. Risks and benefits were discussed.
Consent in chart, OR notified
NPO after MN
[2024-10-30 15:05] VITALS: BP 107/85
[2024-10-30] MEDS: LOVENOX 40 MG SC (17:48)
[2024-10-30] MEDS: LIPITOR 20 MG PO (17:48)
[2024-10-30 18:02] LABS: Urine Albumin 3+ (Neg - Trace); Urine Bilirubin Negative (Negative); Urine Character Cloudy (Clear); Urine Color Yellow; Urine Glucose Negative (Negative); Urine Ketone 1+ (Negative); Urine Leukocyte 3+ (Negative); Urine Nitrite Negative (Negative); Urine Occult Blood 4+ (Negative); Urine Specific Gravity 1.015 (<1.030); Urine Urobilinogen Negative (Neg - 1+)
[2024-10-30 18:09] LABS: Urine Squamous Cell 0-2 /LPF (Few)
[2024-10-30 18:10] LABS: Urine White Cell >100 /HPF (0-5)
[2024-10-30] MEDS: LEXAPRO 10 MG PO (21:15)
[2024-10-30] MEDS: SENOKOT PO (21:20)
[2024-10-30] MEDS: COLACE PO (21:20)
[2024-10-30 23:25] VITALS: BP 148/62
[2024-10-31] VITALS (11 sets, daily range): BP systolic 117–151; BP diastolic 57–73; PULSE 61–63; O2SAT 96
[2024-10-31] MEDS: TYLENOL 650 MG PO ×4 (01:56→19:45)
[2024-10-31 06:01] LABS: % Basophils 0.6 % (0-2); % Eosinophils 5.9 % (0-6); % Immature Granulocytes 0.3 % (0-0.5); % Lymphocytes 19.2 % (20.5-51.1); % Monocytes 10.3 % (1.7-9.3); % Neutrophils 63.7 % (42.2-75.2); Absolute Basophils 0.1 10^3/uL (0-0.2); Absolute Eosinophils 0.6 10^3/uL (0-0.7); Absolute Neutrophils 6.5 10^3/uL (1.4-6.5); Hemoglobin 9.4 g/dL (12.0-16.0); Mean Corp Hgb Conc. 32.4 g/dL (33.0-37.0); Mean Corpuscular Hgb 30.4 pg (27.0-31.0); Mean Corpuscular Volume 93.9 fL (81.0-99.0); Mean Platelet Volume 10.4 fL (7.4-10.4); Nucleated Red Blood Cells % 0 %; Platelet Count 214 10^3/uL (130-400); Red Blood Cell Count 3.09 10^6/uL (4.20-5.40); Red Cell Dist. Width 13.7 % (11.5-14.5); White Blood Cell Count 10.1 10^3/uL (4.8-10.8)
[2024-10-31 06:07] LABS: Blood Urea Nitrogen 22 mg/dl (7-17); Calcium 8.9 mg/dl (8.4-10.2); Carbon Dioxide 28 mmol/L (22-30); Chloride 107 mmol/L (98-107); Estimated Creatinine Clearance 66 ml/min; Glucose 116 mg/dl (70-99); Potassium 4.3 mmol/L (3.5-5.1); Sodium 138 mmol/L (135-145); eGFR > 60.00
--- NOTE | 2024-10-31 06:47 | W.PN.UPDATE ---
Update Note
Progress Note Update
Patient seen and evaluated by Orthopedic surgery this morning. Plan for left distal radius ORIF today under direction of Dr. Winter. NPO and NWB to JULIAN. Consent in Chart. Pre-op Ancef TERRIEOR. Orthopedic surgery will continue to follow.
[2024-10-31] MEDS: VITAMIN B-12 1000 MCG PO (08:03)
[2024-10-31] MEDS: LONITEN 1.25 MG PO (08:03)
[2024-10-31] MEDS: ASPIR LOW (ENTERIC COATED) 81 MG PO (08:03)
[2024-10-31] MEDS: THERAGRAN 1 TABLET PO (08:11)
[2024-10-31] MEDS: ZESTRIL 20 MG PO (08:11)
[2024-10-31] MEDS: COLACE PO ×3 (08:11→19:49)
[2024-10-31] MEDS: PEPCID 20 MG PO (08:11)
[2024-10-31] MEDS: ROXICODONE 5 MG PO (08:11)
[2024-10-31] MEDS: SENOKOT PO ×3 (08:11→19:49)
[2024-10-31] MEDS: VITAMIN D3 (cholecalciferol) 25 MCG PO (08:11)
[2024-10-31] MEDS: STERILE WATER FOR INJECTION 10 ML IV (10:37)
[2024-10-31] MEDS: ROCEPHIN 1000 MG IV (10:39)
--- NOTE | 2024-10-31 12:09 | W.PN.HOSP.TC ---
Today's Communication/Plan
-
Monitor vital signs see plan
Started ceftriaxone
OR today
Pain control
Follow urine culture
Assessment / Plan
Assessment / Plan
Gen-AAOx3, NAD
HEENT-NC, AT, anicteric, clear oral mm
CV-reg, no M, +S1/S2
Lungs-clear B/L
Abd-soft, NT, ND
Ext-no edema
Musculoskeletal- left arm Roland wrap
Skin-warm and dry
Neuro-grossly non-focal
Psych-calm, cooperative
Acute traumatic right pelvic fracture -due to fall and underlying osteoporosis.
Acute traumatic left distal radial fracture -due to fall and underlying osteoporosis.
consulted orthopedics, known to Dr. Saldaña. OR 10/[address] Winter
PT/OT. Continue analgesics.
Urinary urgency likely 2/2 UTI
Ua noted; follow urine cx
CFTX
Essential hypertension -resume home meds.
Hyperlipidemia -atorvastatin.
GERD
History of recurrent small bowel obstruction
Depression
Full code
Dispo - anticipate SNF on discharge. Case management assisting.
Anticipated Discharge: 24 - 48 hours
Subjective/Interval History
-
Date of Service: October 31, 2024
denies nausea
Objective Data
-
Labs:
Laboratory Results
10/31/24
05:07
WBC 10.1
Hgb 9.4 L
Hct 29.0 L
Plt Count 214
Sodium 138
Potassium 4.3
Chloride 107
Carbon Dioxide 28
BUN 22 H
Creatinine 0.6
Glucose 116 H
Calcium 8.9
Vital Signs:
Vital Signs
Temp Pulse Resp BP Pulse Ox
98.6 F 57 14 132/61 92
10/31/24 08:18 10/31/24 08:18 10/31/24 08:18 10/31/24 08:18 10/31/24 08:18
I&O
10/30/24 10/31/24 11/01/24
06:59 06:59 06:59
Intake Total 1020 / 1020 960 / 960
Output Total 600 / 600
Balance 420 / 420 960 / 960
[2024-10-31] MEDS: TYLENOL PO ×2 (12:25→14:22)
--- NOTE | 2024-10-31 14:11 | W.IMMPOSTOP ---
Surgical Immed Post Op Note
-
Primary Surgeon: Maggy
Pre-op Diagnosis: Left distal radius Fracture
Post-op Diagnosis: Same
Procedure Performed: Left distal radius ORIF
Anesthesia Type: General
Specimen / Cultures: None
Estimated Blood Loss: 2cc
Complications: None
Operative Findings: Dictated
Plan:
- ALEJANDRO JORDAN. Ok to use platform walker
- Keep splint until follow up in the office in 10-14 days
- PT/ OT
- Dispo planning
--- NOTE | 2024-10-31 16:52 | CM ---
Pt had left wrist surgery today .
Pt was notified that she was changed from observation and now post surgical recovery.
[facility] Certification Number [id number] CERTIFIED IN TOTAL Start Date 2024-10-29 End Date 2024-11-04
Will need PT OT reordered postop.
If auth by time dc. May need to obtained another auth.
PLAN Call [facility] for bed availability check on auth
[2024-10-31] MEDS: LIPITOR 20 MG PO (17:17)
[2024-10-31] MEDS: LOVENOX 40 MG SC (17:17)
[2024-10-31] MEDS: LEXAPRO 10 MG PO (22:42)
[2024-11-01] VITALS (7 sets, daily range): BP systolic 121–141; BP diastolic 58–73; PULSE 76–81; O2SAT 96
[2024-11-01] MEDS: TYLENOL 650 MG PO ×6 (00:27→23:07)
[2024-11-01] MEDS: ROXICODONE 5 MG PO (00:35)
[2024-11-01 06:20] LABS: % Basophils 0.1 % (0-2); % Immature Granulocytes 0.3 % (0-0.5); % Lymphocytes 5.2 % (20.5-51.1); % Monocytes 6.8 % (1.7-9.3); % Neutrophils 87.6 % (42.2-75.2); Absolute Lymphocytes 0.6 10^3/uL (1.2-3.4); Absolute Monocytes 0.8 10^3/uL (0.1-0.6); Absolute Neutrophils 10.5 10^3/uL (1.4-6.5); Hematocrit 29.8 % (37.0-47.0); Hemoglobin 9.8 g/dL (12.0-16.0); Mean Corp Hgb Conc. 32.9 g/dL (33.0-37.0); Mean Corpuscular Hgb 31.1 pg (27.0-31.0); Mean Corpuscular Volume 94.6 fL (81.0-99.0); Mean Platelet Volume 10.3 fL (7.4-10.4); Nucleated Red Blood Cells % 0 %; Platelet Count 268 10^3/uL (130-400); Red Blood Cell Count 3.15 10^6/uL (4.20-5.40); Red Cell Dist. Width 13.8 % (11.5-14.5)
[2024-11-01 06:27] LABS: Blood Urea Nitrogen 20 mg/dl (7-17); Calcium 9.3 mg/dl (8.4-10.2); Carbon Dioxide 30 mmol/L (22-30); Chloride 108 mmol/L (98-107); Estimated Creatinine Clearance 66 ml/min; Glucose 139 mg/dl (70-99); Potassium 5.2 mmol/L (3.5-5.1); Sodium 140 mmol/L (135-145); eGFR > 60.00
--- NOTE | 2024-11-01 07:35 | W.PN.UPDATE ---
Update Note
Progress Note Update
Ms. Dowd is POD1 following her left ORIF distal radius fracture performed by Dr. Winter. She reports she is doing well this morning, and her pain is well controlled at present. She has no questions or concerns at this time.
Directed exam of the left upper extremity reveals surgical dressing clean, dry and intact. Expected post-operative edema and ecchymosis throughout the fingers. Patient able to wiggle fingers. Sensation intact to light touch. Capillary refill <2
seconds.
79 yo F POD1 ORIF left distal radius fracture under the direction of Dr. Winter
--Non-weight bearing to left upper extremity. May use platform walker. We appreciate the assistance of PT/OT while patient admitted.
--Splint to remain until 2 week post-op visit.
--Pain control prn. Encouraged ice and elevation for edema control.
--Case management consult for dc planning.
--Orthopedics will continue to follow along.
[2024-11-01] MEDS: THERAGRAN 1 TABLET PO (08:36)
[2024-11-01] MEDS: ZESTRIL 20 MG PO (08:37)
[2024-11-01] MEDS: LONITEN 1.25 MG PO (08:38)
[2024-11-01] MEDS: PEPCID 20 MG PO (08:38)
[2024-11-01] MEDS: VITAMIN B-12 1000 MCG PO (08:38)
[2024-11-01] MEDS: COLACE 100 MG PO ×2 (08:38→20:42)
[2024-11-01] MEDS: SENOKOT PO ×2 (08:38→08:46)
[2024-11-01] MEDS: VITAMIN D3 (cholecalciferol) 25 MCG PO (08:38)
[2024-11-01] MEDS: ASPIR LOW (ENTERIC COATED) 81 MG PO (08:38)
[2024-11-01] MEDS: STERILE WATER FOR INJECTION 10 ML IV (09:16)
[2024-11-01] MEDS: ROCEPHIN 1000 MG IV (09:17)
--- NOTE | 2024-11-01 12:57 | W.PN.HOSP.TC ---
Today's Communication/Plan
-
Monitor vital signs see plan
Follow urine culture
Continue with ceftriaxone
PT/OT
Monitor potassium, continue laxative
Assessment / Plan
Assessment / Plan
Gen-AAOx3, NAD
HEENT-NC, AT, anicteric, clear oral mm
CV-reg, no M, +S1/S2
Lungs-clear B/L
Abd-soft, NT, ND
Ext-no edema
Musculoskeletal- left arm Roland wrap
Skin-warm and dry
Neuro-grossly non-focal
Psych-calm, cooperative
Acute traumatic right pelvic fracture -due to fall and underlying osteoporosis.
Acute traumatic left distal radial fracture -due to fall and underlying osteoporosis.
consulted orthopedics, known to Dr. Saldaña. s/p ORIF left distal radius fracture by Dr Winter
Non-weight bearing to left upper extremity. May use platform walker; Splint to remain until 2 week post-op visit per ortho
PT/OT. pain control
Urinary urgency likely 2/2 UTI
Ua noted; follow urine cx, growing gram neg rods
CFTX
mild hyperkalemia
monitor
Essential hypertension -resume home meds.
Hyperlipidemia -atorvastatin.
GERD
History of recurrent small bowel obstruction
Depression
Full code
Dispo - anticipate SNF on discharge. Case management assisting.
Anticipated Discharge: Within 24 hours
Subjective/Interval History
-
Date of Service: November 01, 2024
denies nausea
Objective Data
-
Labs:
Laboratory Results
11/01/24
05:05
WBC 12.0 H
Hgb 9.8 L
Hct 29.8 L
Plt Count 268 D
Sodium 140
Potassium 5.2 H
Chloride 108 H
Carbon Dioxide 30
BUN 20 H
Creatinine 0.6
Glucose 139 H
Calcium 9.3
Vital Signs:
Vital Signs
Temp Pulse Resp BP Pulse Ox
98.1 F 58 18 138/58 94
11/01/24 07:15 11/01/24 08:38 11/01/24 07:15 11/01/24 08:38 11/01/24 07:15
I&O
10/31/24 11/01/24 11/02/24
06:59 06:59 06:59
Intake Total 960 / 960 530 / 530
Balance 960 / 960 530 / 530
[2024-11-01] MEDS: MILK OF MAGNESIA 30 ML PO (13:46)
--- NOTE | 2024-11-01 15:33 | CM ---
CM following for discharge planning to [facility]. Updated referral information sent via [facility].
Plan: CM to coordinate transfer to SNF at [facility]; may need to update [employer] authorization.
CM to follow up in AM for authorization pending bed availability.
[2024-11-01] MEDS: LIPITOR 20 MG PO (17:43)
[2024-11-01] MEDS: LOVENOX 40 MG SC (17:43)
[2024-11-01] MEDS: TYLENOL PO ×2 (17:43→17:49)
[2024-11-01] MEDS: MIRALAX 17 GRAMS PO (20:42)
[2024-11-01] MEDS: SENOKOT 17.2 MG PO (20:42)
[2024-11-01] MEDS: LEXAPRO 10 MG PO (21:43)
[2024-11-02] MEDS: XANAX 0.5 MG PO (00:36)
[2024-11-02] MEDS: BENADRYL 50 MG PO (01:04)
[2024-11-02] MEDS: TYLENOL PO (05:27)
[2024-11-02 05:40] LABS: % Basophils 0.5 % (0-2); % Eosinophils 1.3 % (0-6); % Immature Granulocytes 0.4 % (0-0.5); % Lymphocytes 20.1 % (20.5-51.1); % Monocytes 9.8 % (1.7-9.3); % Neutrophils 67.9 % (42.2-75.2); Absolute Basophils 0.1 10^3/uL (0-0.2); Absolute Eosinophils 0.2 10^3/uL (0-0.7); Absolute Immature Granulocytes 0.1 10^3/uL (0-0.05); Absolute Lymphocytes 2.3 10^3/uL (1.2-3.4); Absolute Monocytes 1.1 10^3/uL (0.1-0.6); Absolute Neutrophils 7.8 10^3/uL (1.4-6.5); Hematocrit 29.7 % (37.0-47.0); Hemoglobin 9.3 g/dL (12.0-16.0); Mean Corp Hgb Conc. 31.3 g/dL (33.0-37.0); Mean Corpuscular Hgb 29.8 pg (27.0-31.0); Mean Corpuscular Volume 95.2 fL (81.0-99.0); Mean Platelet Volume 10.1 fL (7.4-10.4); Nucleated Red Blood Cells % 0 %; Platelet Count 269 10^3/uL (130-400); Red Blood Cell Count 3.12 10^6/uL (4.20-5.40); White Blood Cell Count 11.5 10^3/uL (4.8-10.8)
[2024-11-02 05:52] LABS: Blood Urea Nitrogen 22 mg/dl (7-17); Calcium 8.9 mg/dl (8.4-10.2); Carbon Dioxide 30 mmol/L (22-30); Chloride 109 mmol/L (98-107); Estimated Creatinine Clearance 66 ml/min; Glucose 118 mg/dl (70-99); Magnesium 2.1 mg/dl (1.6-2.3); Potassium 4.1 mmol/L (3.5-5.1); Sodium 141 mmol/L (135-145); eGFR > 60.00
--- NOTE | 2024-11-02 07:13 | W.PN.ORTHO ---
Today's Communication / Plan
-
Left upper extremity splint in place at all times
Nonweightbearing left upper extremity with platform walker
Weight-bear as tolerated lower extremities
Ice with elevation to control swelling and pain
Orthopedics stable for discharge
Follow-up with orthopedics 2 weeks postop for incision check/x-ray
Assessment
.
Distal Motor Intact: Yes
Dressing:
Clean, dry and intact. Splint in place.
Plan
.
Surgery / Date: ORIF L radius 11/01 Park/R sup ramus fx
DVT Prophylaxis: Aspirin
Activity:
Out of bed.
PT/OT
Discharge Plan: SNF
Subjective
.
.:
Patient resting comfortably.
Vital Signs and Labs
.
Vital Signs and Labs:
Lab Results
11/02/24 05:04
11/02/24 05:04
Temp Pulse Resp BP Pulse Ox
98.6 F 62 17 122/73 96
11/01/24 23:00 11/01/24 23:00 11/01/24 23:00 11/01/24 23:00 11/02/24 03:26
[2024-11-02 07:48] VITALS: BP 135/78
[2024-11-02] MEDS: ASPIR LOW (ENTERIC COATED) 81 MG PO (09:31)
[2024-11-02] MEDS: LONITEN 1.25 MG PO (09:31)
[2024-11-02] MEDS: VITAMIN B-12 1000 MCG PO (09:31)
[2024-11-02] MEDS: TYLENOL 650 MG PO ×2 (09:31→12:51)
[2024-11-02] MEDS: VITAMIN D3 (cholecalciferol) 25 MCG PO (09:31)
[2024-11-02] MEDS: SENOKOT 17.2 MG PO (09:31)
[2024-11-02] MEDS: THERAGRAN 1 TABLET PO (09:32)
[2024-11-02] MEDS: PEPCID 20 MG PO (09:32)
[2024-11-02] MEDS: COLACE 100 MG PO (09:32)
[2024-11-02] MEDS: ZESTRIL 20 MG PO (09:35)
[2024-11-02] MEDS: OMNICEF 300 MG PO (09:35)
[2024-11-02] MEDS: ROXICODONE 5 MG PO ×2 (09:43→14:47)
--- NOTE | 2024-11-02 11:37 | W.PN.HOSP.TC ---
Addendum entered and electronically signed by Sumit Carey MD 11/02/24 13:20:
Time of discharge 37 minutes
Original Note:
Today's Communication/Plan
-
Monitor vitals
See plan
Discharge today if has SNF placement, showcase maker aware
Switch antibiotics to oral
Assessment / Plan
Assessment / Plan
Gen-AAOx3, NAD
HEENT-NC, AT, anicteric, clear oral mm
CV-reg, no M, +S1/S2
Lungs-clear B/L
Abd-soft, NT, ND
Ext-no edema
Musculoskeletal- left arm Roland wrap
Skin-warm and dry
Neuro-grossly non-focal
Psych-calm, cooperative
Acute traumatic right pelvic fracture -due to fall and underlying osteoporosis.
Acute traumatic left distal radial fracture -due to fall and underlying osteoporosis.
consulted orthopedics, known to Dr. Saldaña. s/p ORIF left distal radius fracture by Dr Winter
Non-weight bearing to left upper extremity. May use platform walker; Splint to remain until 2 week post-op visit per ortho
PT/OT. pain control
Urinary urgency likely 2/2 UTI
Ua noted; follow urine cx, urine culture with Klebsiella. Switch antibiotics to cefdinir to complete course
mild hyperkalemia
Resolved
Essential hypertension -resume home meds.
Hyperlipidemia -atorvastatin.
GERD
History of recurrent small bowel obstruction
Depression
Full code
Dispo - anticipate SNF on discharge. Case management assisting.
Anticipated Discharge: Today
Subjective/Interval History
-
Date of Service: November 02, 2024
denies nausea
Objective Data
-
Labs:
Laboratory Results
11/02/24
05:04
WBC 11.5 H
Hgb 9.3 L
Hct 29.7 L
Plt Count 269
Sodium 141
Potassium 4.1
Chloride 109 H
Carbon Dioxide 30
BUN 22 H
Creatinine 0.6
Glucose 118 H
Calcium 8.9
Vital Signs:
Vital Signs
Temp Pulse Resp BP Pulse Ox
97.8 F 63 17 135/78 94
11/02/24 07:48 11/02/24 07:48 11/02/24 07:48 11/02/24 07:48 11/02/24 07:48
I&O
11/01/24 11/02/24 11/03/24
06:59 06:59 06:59
Intake Total 530 / 530 500 / 500
Balance 530 / 530 500 / 500
--- NOTE | 2024-11-02 11:44 | W.DCSUMMARY ---
Discharge Summary
Discharge Data
Date of Admission: 10/28/24
Date of Discharge: 11/02/24
-
Pending Results: No
Hospital Course
79-year-old female with past medical history of essential hypertension, hyperlipidemia, GERD, small bowel obstruction, depression came to the hospital after a fall with acute traumatic right pelvic fracture and acute traumatic left distal radial
fracture. Patient was seen by orthopedics and was taken for surgery for left distal radius fracture. Patient instructed to have nonweightbearing status to left upper extremity in splint. Patient was seen by physical therapy and was recommended
SNF. On this hospitalization patient also had urinary tract infection. Urine culture grew Klebsiella. Initially patient was on IV antibiotics which was later transitioned to p.o. cefdinir prior to discharge. Once patient symptoms continue to
improve, she was then discharged to rehab with instructions to follow-up with all her physicians outpatient.
Discharge Plan
-
Patient Disposition: Fpc/SNF
Discharge Diagnosis/Procedures: Acute traumatic right pelvic fracture
Acute traumatic left distal radial fracture s/p ORIF left distal radius
Urinary tract infection
Diet: As tolerated
Activity: As tolerated
Driving Restrictions: As prior to admission
Bathing Restrictions: None
Activity Restrictions/Additional Instructions:
Continue cefdinir through 11/04/2024
Left upper extremity splint in place at all times
Nonweightbearing left upper extremity with platform walker
Weight-bear as tolerated lower extremities
Ice with elevation to control swelling and pain
Follow-up with orthopedics 2 weeks postop for incision check/x-ray
Referrals:
Mark Saldaña MD [Active] -
Moses Alvarez MD [Family Provider] - in less than 1 week
Prescriptions:
New
docusate sodium 100 mg Capsule
100 mg PO BID Qty: 0 0RF
cefdinir 300 mg Capsule
300 mg PO Q12 Qty: 0 0RF
sennosides [Uma-isela] 8.6 mg Tablet
17.2 mg PO BID Qty: 0 0RF
oxycodone 5 mg Tablet
5 mg PO Q4HPRN PRN (Reason: severe pain) Qty: 10 0RF
polyethylene glycol 3350 17 gram Powder In Packet
17 g PO DAILYPRN PRN (Reason: constipation) Qty: 0 0RF
Continued
sucralfate 1 GRAM tablet
1 g PO ACHSPRN PRN (Reason: gi upset/issues)
famotidine 20 MG tablet
20 mg PO BID
escitalopram oxalate 10 MG tablet
10 mg PO HS
ascorbic acid (vitamin C) [Vitamin C] 500 MG tablet
500 mg PO DAILY
cyanocobalamin (vitamin B-12) 1,000 MCG tablet
1,000 mcg PO DAILY
hyoscyamine sulfate 0.125 MG tablet, sublingual
0.125 mg PO Q4HPRN PRN (Reason: bowel problems)
cholecalciferol (vitamin D3) 1,000 UNITS tablet
25 mcg PO DAILY
multivitamin with folic acid [Tab-A-Aric] 1 TABLET tablet
1 tab PO DAILY
atorvastatin 20 mg Tablet
20 mg PO QPM
minoxidil 2.5 mg Tablet
1.25 mg PO DAILY
Systane (PF) 0.4-0.3 % Dropperette
1 drp BOTH EYES BIDPRN PRN (Reason: dryness)
diphenhydramine HCl 50 mg Capsule
50 mg PO HS PRN (Reason: if waking up after xanax and unable to sleep again)
lisinopril 20 mg Tablet
20 mg PO DAILY
aspirin
81 mg PO DAILY
alprazolam 0.5 MG tablet
0.5 mg PO HSPRN PRN (Reason: insomnia) Qty: 3 0RF
Discharge Orders:
Discharge Patient (As Directed); Ordered 11/02/24
Ordered By: Sumit Carey
Discharge Date and Time
Discharge Date/Time: 11/02/24 15:26
Print Language: [place]
--- NOTE | 2024-11-02 12:07 | PTCARENOTE ---
Patient OOb to chair with assist x1 and platform walker. Patient c/o 10 pain. Roxicodone given with good relief at 0943. Patient tolerated 100% of regular diet, voiding without difficulty on BSC. Patient had BM on BSC. patient has stress
incontinence and wears her own pull ups. LUE in splint and aurora wrap, patient instructed on NWB.
--- NOTE | 2024-11-02 13:09 | CM ---
MD entered discharge order
s/p left wrist surgery
Pt was notified that she was changed from observation and now post surgical recovery.
Auth obtained for [facility] Jessika pal at [facility] Certification Number [id number] CERTIFIED IN TOTAL Start Date 2024-10-29 End Date 2024-11-04
Spoke with Alma at [facility] she confirmed a bed at [facility] today .
Spoke with Ryne and patient she wanted TCU unit. Alma pal and when auth exp 11/04/24 will get auth for TCU.
Spoke with pt she requested ambulance Medical nec form completed.
[facility]
report [phone]
fax [phone]
[facility]
[2024-11-02 15:03] VITALS: BP 135/56
== END 2024-11-02 15:26 ==
LOC: PACU 13:26
PROVIDERS: Hospitalist; ATTENDING PHYSICIAN Internal Medicine; CONSULT PHYSICIAN Orthopaedic Surgery; EMERGENCY PHYSICIAN Student in an Organized Health Care Education/Training Program; FAMILY PHYSICIAN Internal Medicine
DX: S52.572A Other intraarticular fracture of lower end of left radius, initial encounter for closed fracture (principal); W01.0XXA Fall on same level from slipping, tripping and stumbling without subsequent striking against object, initial encounter
CPT/HCPCS: 25609; C1776; 25600; 73100; 73110; 73502; 80048; 81003; 81015; 83735; 85025; 87077; 87086; 87186; 96374; 97116; 97164; 97167; 97530; 97535; 99152; 99285; C1713; G0378

== ENCOUNTER 2025-04-01 06:17 | Inpatient (IN) | payer OTHER, SELFPAY ==
[2025-03-31 22:19] VITALS: BP 146/74
[2025-03-31 23:38] VITALS: BP 141/66
--- NOTE | 2025-03-31 23:53 | ED.GENMED ---
History of Present Illness
General
Chief Complaint: Abdominal Symptoms
Source: patient
Exam Limitations: none
Time Seen by Provider: 03/31/25 23:36
Nursing documentation reviewed up to this point in time: agreed with
History of Present Illness
History of Present Illness:
81-year-old female presenting to the emergency department today with concerns of 3 days of abdominal pain. Diagnosed with UTI yesterday was on antibiotics as well as Keflex today multiple episodes of vomiting today worsening abdominal pain. Did
have a normal bowel movement today. Does have a history of bowel obstructions.
Past History
Past History
ED Past Medical History: Other (Recurrent bowel obstruction, intra-abdominal adhesions, diverticulitis, intracranial hemorrhage)
ED Past Surgical History: Bowel resection and Orthopedic
Social History
Tobacco: Non-smoker
Alcohol: None
Review of Systems
Review of Systems
Allergies reviewed?: Yes
All Other Systems: ROS reviewed and negative except as documented in HPI and ROS
Phy Exam
Physical Exam
Physical Exam:
GENERAL: Alert , in no apparent distress
EYE: pupils equal and reactive
NECK: Supple, no significant adenopathy.
ENT: o/p clr, mmm.
CARDIAC: Regular rate and rhythm .
LUNGS: Clear breath sounds bilaterally, no acute respiratory distress, no wheezes/rales/rhonchi
ABDOMEN: Diffuse tenderness palpation throughout the abdomen no focal pain
NEUROLOGICAL: Alert and oriented, no focal neuro deficits
SKIN: Warm and dry, skin intact.
MUSCULOSKELETAL: No edema, well perfused.
PSYCH: Normal and appropriate interaction.
Course
Orders/Labs/Results
Orders:
Orders
03/31/25 23:53
Complete Blood Count/With Diff Urgent
Comprehensive Metabolic Panel Urgent
Lipase Urgent
Urinalysis Reflex To Culture Urgent
Date Specimen was Collected: 03/31/25
Time Specimen was Collected: 23:56
04/01/25 00:01
CT Abd/Pel (IV only)-DH only Urgent
Reason For Exam: diffuse abd pain, hx of SBO, UTI
04/01/25 00:03
Urine Microscopic Reflex Cult Urgent
Urine Culture Urgent
MONICA Source: U
Specimen Description:
Date Specimen was Collected: 03/31/25
Time Specimen was Collected: 23:56
04/01/25 03:07
CefTRIAXone [Rocephin] 1,000 mg IV NOW STA
Abnormal Lab Results
04/01/25
00:03
WBC 17.7 H 10^3/uL
(4.8-10.8)
RBC 4.05 L 10^6/uL
(4.20-5.40)
Hgb 11.9 L g/dL
(12.0-16.0)
MCHC 30.7 L g/dL
(33.0-37.0)
Abs Immat Gran (auto) 0.1 H 10^3/uL
(0-0.05)
Absolute Neuts (auto) 15.9 H 10^3/uL
(1.4-6.5)
Absolute Lymphs (auto) 0.7 L 10^3/uL
(1.2-3.4)
Absolute Monos (auto) 0.9 H 10^3/uL
(0.1-0.6)
Neutrophils % 90.0 H %
(42.2-75.2)
Lymphocytes % 3.7 L %
(20.5-51.1)
Sodium 132 L mmol/L
(135-145)
BUN 18 H mg/dl
(7-17)
Glucose 143 H mg/dl
(70-99)
Ur Occult Blood Reflex 2+ A
(Negative)
Urine Nitrite (Reflex) Positive A
(Negative)
Leukocyte Esterase Rfl 3+ A
(Negative)
Urine WBC (Reflex) >100 A /HPF
(0-5)
Urine Bacteria (Reflex) Many A
(Negative)
Urine Albumin (Reflex) 2+ A
(Neg - Trace)
04/01/25 00:03
04/01/25 00:03
Vital Signs
Initial and Last Documented VS:
Initial Vital Signs
Temp Pulse Resp BP Pulse Ox
97.8 F 80 16 146/74 98
03/31/25 22:19 03/31/25 22:19 03/31/25 22:19 03/31/25 22:19 03/31/25 22:19
Last Documented Vital Signs
Temp Pulse Resp BP Pulse Ox
97.8 F 80 20 112/56 95
03/31/25 22:19 04/01/25 02:00 04/01/25 02:00 04/01/25 02:00 04/01/25 02:00
MDM/Problems Addressed
MDM/Problems Addressed:
80-year-old female presenting to the emergency department today with concerns of 3 days of abdominal pain diagnosed with UTI yesterday on antibiotics not having vomiting today. Some slight worsening of pain. Patient does have a history of bowel
obstructions in the past concerning the CT scan was obtained that did show possible bowel obstruction. Patient does have elevated white count also urine seems to be consistent with urinary tract infection was started on IV antibiotics plan to admit
for further monitoring and treatment.
*Radiology
Radiology exam reviewed: radiology read reviewed (CT A/P W/IV CONTRAST IMPRESSION: Comparison with 02/16/2022. Postsurgical changes in the bowel in the lower abdomen and pelvis. Multiple dilated loops of bowel some of which may reflect denervation
related change associated with prior surgery. This could also be seen with bowel obstruction. This i)
*Pulse Oximetry
SaO2: 98
Oxygen Mode of Delivery: Room air
Patient hypoxic: no (95)
*Critical Care Note
Total Time (30-74mins, 75-104mins- exclusive of procedures): Not Applicable
ED Attending Note
-
Portions of this chart may have been created with voice recognition software.� Occasional wrong word or��sound alike� substitutions may have occurred due to the inherent limitations of voice recognition software.
Discharge Plan
Departure
Patient Disposition: Admit
Date of Disposition: 04/01/25
Time of Disposition: 03:09
Admit to: Med/Surg
Admit to doctor: Martín
Presentation/result/management discussed w/ accepting MD/DO: Hospitalist
Patient with high blood pressure during this ER visit?: No
Condition: Fair
Covid-19: Not Applicable
Discharge Problem:
UTI (urinary tract infection), Bowel obstruction
Prescriptions:
No Action
sucralfate 1 GRAM tablet
1 g PO ACHSPRN PRN (Reason: gi upset/issues)
famotidine 20 MG tablet
20 mg PO BID
escitalopram oxalate 10 MG tablet
10 mg PO HS
ascorbic acid (vitamin C) [Vitamin C] 500 MG tablet
500 mg PO DAILY
cyanocobalamin (vitamin B-12) 1,000 MCG tablet
1,000 mcg PO DAILY
hyoscyamine sulfate 0.125 MG tablet, sublingual
0.125 mg PO Q4HPRN PRN (Reason: bowel problems)
cholecalciferol (vitamin D3) 1,000 UNITS tablet
25 mcg PO DAILY
multivitamin with folic acid [Tab-A-Aric] 1 TABLET tablet
1 tab PO DAILY
atorvastatin 20 mg Tablet
20 mg PO QPM
minoxidil 2.5 mg Tablet
1.25 mg PO DAILY
Systane (PF) 0.4-0.3 % Dropperette
1 drp BOTH EYES BIDPRN PRN (Reason: dryness)
diphenhydramine HCl 50 mg Capsule
50 mg PO HS PRN (Reason: if waking up after xanax and unable to sleep again)
lisinopril 20 mg Tablet
20 mg PO DAILY
aspirin
81 mg PO DAILY
docusate sodium 100 mg Capsule
100 mg PO BID Qty: 0 0RF
cefdinir 300 mg Capsule
300 mg PO Q12 Qty: 0 0RF
sennosides [Uma-isela] 8.6 mg Tablet
17.2 mg PO BID Qty: 0 0RF
oxycodone 5 mg Tablet
5 mg PO Q4HPRN PRN (Reason: severe pain) Qty: 10 0RF
alprazolam 0.5 MG tablet
0.5 mg PO HSPRN PRN (Reason: insomnia) Qty: 3 0RF
polyethylene glycol 3350 17 gram Powder In Packet
17 g PO DAILYPRN PRN (Reason: constipation) Qty: 0 0RF
Referrals:
Moses Alvarez MD [Family Provider]
Interventions
Interventions:
*Risk Screen - Suicide Last Done: 03/31/25 22:19
*General Assessment Last Done: 03/31/25 22:19
*Neglect/Abuse Screening Last Done: 03/31/25 22:19
*ED- Fall Risk Assessment Last Done: 04/01/25 00:42
*ED COVID-19 Vaccine History Last Done: 04/01/25 00:14
*ED Influenza Vaccine History Last Done: 03/31/25 22:19
IR-Tsaljm-Bycczvunde Assessment Last Done: 04/01/25 00:14
Discharge Date and Time
Print Language: SINHALA
[2025-04-01] VITALS (7 sets, daily range): BP systolic 112–141; BP diastolic 56–68; BMI 23.3
[2025-04-01 00:11] LABS: Hematocrit 38.8 % (37.0-47.0); Hemoglobin 11.9 g/dL (12.0-16.0); Mean Corp Hgb Conc. 30.7 g/dL (33.0-37.0); Mean Corpuscular Volume 95.8 fL (81.0-99.0); Nucleated Red Blood Cells % 0 %; Platelet Count 302 10^3/uL (130-400); Red Cell Dist. Width 14.1 % (11.5-14.5)
[2025-04-01 00:15] LABS: Urine Character Cloudy (Clear)
[2025-04-01 00:36] LABS: ALT (SGPT) 19 U/L (0-35); AST (SGOT) 33 U/L (14-36); Albumin 4.5 g/dl (3.5-5.0); Alkaline Phosphatase 85 U/L (38-126); Blood Urea Nitrogen 18 mg/dl (7-17); Calcium 9.7 mg/dl (8.4-10.2); Carbon Dioxide 26 mmol/L (22-30); Chloride 99 mmol/L (98-107); Glucose 143 mg/dl (70-99); Lipase 79 U/L (23-300); Potassium 4.7 mmol/L (3.5-5.1); Sodium 132 mmol/L (135-145); Total Protein 7.3 g/dl (6.3-8.2); eGFR > 60.00
[2025-04-01 01:01] LABS: Urine Squamous Cell SEEN /LPF (Few); Urine White Cell >100 /HPF (0-5)
[2025-04-01] MEDS: ROCEPHIN 1000 MG IV (03:14)
--- NOTE | 2025-04-01 05:08 | HPS.HSE ---
Family Physician
-
Family Physician: Moses Alvarez MD
Chief Complaint
-
Abd Pain, N/V
History of Present Illness
Patient is an 80y F with PMH significant for hypertension, GERD and multiple prior SBOs who presents to ED complaining of abdominal pain and N/V. Patient states that she started with abdominal pain on Wednesday. She reports abdominal pain
across the mid abdomen. No N/V/D or other associated symptoms at that time. No urinary symptoms. She was seen at Urgent Care on Wednesday and diagnosed with UTI based on UA. She was started on abx but felt that this made her pain worse. She was
seen at a different Urgent Care on Wednesday and abx were changed to cephalexin. Wednesday afternoon - after taking cephalexin - she developed N/V. She reports multiple episodes / profuse N/V since this afternoon / evening.
She presented to the ED for further evaluation.
At the time of my examination, patient is resting comfortably. Pain is improved but not resolved. No nausea at present.
Patient states that her last BM was around 1:30 this afternoon. She has not been passing flatus since that time.
Medical History
Past Medical History
Past Medical History: Reports Other
Additional Past Medical History:
Hypertension
GERD
Recurrent SBO since
Past Surgical History: Reports Other
Additional Past Surgical History:
Perforate Diverticulitis / Partial Bowel Obstruction ()
Ex Lap with LUANN (multiple, most recent was 2021)
Social History
Tobacco: Non-smoker
Alcohol: None
Drug: None
Family History
Family History: Not pertinent
Allergies / Home Medications
Allergies reflects when Allergies were last updated in [facility].
Home Medications with original date entered in [facility]
Allergy/Medication List:
Allergies
Allergy/AdvReac Type Severity Reaction Status Date / Time
levofloxacin (From Levaquin) Allergy Unknown Verified 03/31/25 22:22
sorbitol Allergy DIARRHEA Verified 03/31/25 22:22
sulfamethoxazole (From Allergy Unknown Verified 03/31/25 22:22
Bactrim)
trimethoprim (From Bactrim) Allergy Unknown Verified 03/31/25 22:22
Home Medications
escitalopram oxalate 10 mg tablet 10 mg PO HS Mental Health/Anxiety 05/19/21
famotidine 20 mg tablet 20 mg PO BID Gastrointestinal issue 05/19/21
sucralfate 1 gram tablet 1 g PO ACHSPRN PRN gi upset/issues 05/19/21
ascorbic acid (vitamin C) 500 mg tablet (Vitamin C) 500 mg PO DAILY Supplement 06/25/21
cholecalciferol (vitamin D3) 25 mcg (1,000 unit) tablet 25 mcg PO DAILY Supplement 06/25/21
cyanocobalamin (vitamin B-12) 1,000 mcg tablet 1,000 mcg PO DAILY Supplement 06/25/21
hyoscyamine sulfate 0.125 mg sublingual tablet 0.125 mg PO Q4HPRN PRN bowel problems 06/25/21
multivitamin with folic acid 400 mcg tablet (Tab-A-Aric) 1 tab PO DAILY Supplement 06/25/21
atorvastatin 20 mg tablet 20 mg PO QPM High cholesterol 02/16/22
minoxidil 2.5 mg tablet 1.25 mg PO DAILY Blood Pressure 09/06/23
peg 400-propylene glycol (PF) 0.4 %-0.3 % eye drops in a dropperette (Systane (PF)) 1 drp BOTH EYES BIDPRN PRN dryness 09/06/23
diphenhydramine HCl 50 mg capsule 50 mg PO HS PRN if waking up after xanax and unable to sleep again 09/07/23
aspirin 81 mg PO DAILY Blood Clot Prevention/Tx 10/28/24
lisinopril 20 mg tablet 20 mg PO DAILY Blood Pressure 10/28/24
alprazolam 0.5 mg tablet 0.5 mg PO HSPRN PRN insomnia #3 tabs 11/02/24
cefdinir 300 mg capsule 300 mg PO Q12 #0 caps 11/02/24
docusate sodium 100 mg capsule 100 mg PO BID #0 caps 11/02/24
oxycodone 5 mg tablet 5 mg PO Q4HPRN PRN severe pain #10 tabs 11/02/24
polyethylene glycol 3350 17 gram oral powder packet 17 g PO DAILYPRN PRN constipation #0 ea 11/02/24
sennosides 8.6 mg tablet (Uma-isela) 17.2 mg (2 x 8.6 mg) PO BID #0 tabs 11/02/24
Prolia 60 mg SC [id number] 04/01/25
Review of Systems
-
History Source: Patient
A 12 point ROS was completed and negative except as noted: Yes
Constitutional: Denies Fever or Chills
Respiratory: Denies Cough or Trouble Breathing
Cardiac: Denies Chest Pain or Palpitations
Abdomen/GI: Reports Abdominal Pain, Nausea and Vomiting; Denies Diarrhea, Constipated or Anorexia
: Denies Dysuria, Frequency, Flank Pain, Urgency or Bleeding
Musculoskeletal: Denies Joint Pain or Edema
Neurological: Denies Dizzy or Headache
Physical Exam
Vital Signs
Vital Signs
Temp Pulse Resp BP Pulse Ox
97.8 F 80 20 112/56 95
03/31/25 22:19 04/01/25 02:00 04/01/25 02:00 04/01/25 02:00 04/01/25 02:00
Physical Exam
General: Other (80y F in no acute distress.)
HEENT: Moist mucous membranes and PERRLA
Respiratory: Clear; No Wheezes, Rales or Rhonchi
Cardiac: S1/S2 and Regular Rhythm; No Murmur
GI: Other (Pos bowel sounds. Mild tenderness across upper abdomen. )
Genito-urinary: No costovertebral tender
Musculoskeletal: No Clubbing, No Cyanosis and No Edema
Neuro: AO x 3
Laboratory Results
-
04/01/25 00:03
04/01/25 00:03
Laboratory Results
Total Bilirubin 1.1 mg/dl (0.2-1.3) 04/01/25 00:03
AST 33 U/L (14-36) 04/01/25 00:03
ALT 19 U/L (0-35) 04/01/25 00:03
Alkaline Phosphatase 85 U/L (38-126) 04/01/25 00:03
Lipase 79 U/L (23-300) 04/01/25 00:03
Impression/Plan
-
A/P: Patient is an 80y F with PMH significant for hypertension and recurrent SBO who presents to ED complaining of abdominal pain with N/V.
SBO
- Admit for further evaluation and treatment.
- Abdominal pain with associated N/V and dilated loops of small bowel on CT scan seems most c/w SBO.
- Supportive care, NPO, IVFs, pain control and antiemetics.
- Surgery consulted for further evaluation.
- Follow for clinical improvement.
Abnormal UA
- Patient has no urinary symptoms now nor has she throughout this process.
- Follow-up culture results and monitor for symptoms.
- Will continue ceftriaxone for now pending culture given leukocytosis - though suspect this is stress response from SBO.
Benign Hypertension
- Hold all PO meds acutely. Resume when able.
DVT prophylaxis: SCDs
Code Status: Full
[2025-04-01] MEDS: NSS 1000 IV ×2 (06:02→19:36)
[2025-04-01 06:32] LABS: Hematocrit 37.3 % (37.0-47.0); Hemoglobin 11.4 g/dL (12.0-16.0); Mean Corp Hgb Conc. 30.6 g/dL (33.0-37.0); Mean Corpuscular Volume 95.9 fL (81.0-99.0); Platelet Count 305 10^3/uL (130-400); Red Cell Dist. Width 14.0 % (11.5-14.5)
[2025-04-01 07:07] LABS: Blood Urea Nitrogen 15 mg/dl (7-17); Calcium 9.3 mg/dl (8.4-10.2); Carbon Dioxide 28 mmol/L (22-30); Chloride 103 mmol/L (98-107); Glucose 114 mg/dl (70-99); Potassium 4.8 mmol/L (3.5-5.1); Sodium 138 mmol/L (135-145); eGFR > 60.00
--- NOTE | 2025-04-01 07:41 | PTCARENOTE ---
Patient moved to macu with a bed already assigned on shift commander. ED no-delay report tubed to floor 10 minutes ago, RN called receiving floor to let them know.
PCT informed to take patient up in stretcher to new room on .
[2025-04-01] MEDS: NSS (PRESERVATIVE FREE) 10 ML IV (08:27)
[2025-04-01] MEDS: PROTONIX IV 40 MG IV (08:27)
--- NOTE | 2025-04-01 10:16 | W.PN.HOSP.TC ---
Today's Communication/Plan
-
continue current care.
Assessment / Plan
Assessment / Plan
80y woman with PMH significant for hypertension and recurrent SBO who presents to ED complaining of abdominal pain with N/V.
1. SBO - appears to be resolving
- Abdominal pain with associated N/V and dilated loops of small bowel on CT scan seems most c/w SBO.
- Supportive care, NPO, IVFs, pain control and antiemetics.
- Surgery consulted for further evaluation.
- Follow for clinical improvement.
2. Abnormal UA
- Patient has no urinary symptoms now nor has she throughout this process.
- Follow-up culture results and monitor for symptoms.
- Will continue ceftriaxone for now pending culture given leukocytosis - though suspect this is stress response from SBO.
3. Benign Hypertension
- Hold all PO meds acutely. Resume when able.
DVT prophylaxis: SCDs
Code Status: Full
Anticipated Discharge: 24 - 48 hours
Subjective/Interval History
-
Date of Service: April 01, 2025
Had BM. Feels about the same.
Objective Data
-
Labs:
Laboratory Results
04/01/25 04/01/25
00:03 06:13
WBC 17.7 H 12.0 H
Hgb 11.9 L 11.4 L
Hct 38.8 37.3
Plt Count 302 305
Sodium 132 L 138
Potassium 4.7 4.8
Chloride 99 103
Carbon Dioxide 26 28
BUN 18 H 15
Creatinine 0.7 0.7
Glucose 143 H 114 H
Calcium 9.7 9.3
Total Bilirubin 1.1
AST 33
ALT 19
Alkaline Phosphatase 85
Vital Signs:
Vital Signs
Temp Pulse Resp BP Pulse Ox
98.3 F 63 16 128/60 97
04/01/25 08:17 04/01/25 08:17 04/01/25 08:17 04/01/25 08:17 04/01/25 08:17
Review of Systems
-
History Source: Patient
All other systems: Reviewed and negative
Physical Exam
-
General: Well Developed, Well Nourished, No Apparent Distress and Comfortable
HEENT: Normocephalic, Atraumatic, Nose Appears Normal and Ears Appear Normal
Respiratory: Clear to Auscultation
Cardiac: Regular Rhythm and S1/S2
GI: Soft, Nontender and Nondistended
Musculoskeletal: No Clubbing, No Cyanosis and No Edema
Skin: Warm and Dry
Neuro: Awake, Alert and Oriented
Psych: Calm
Data Reviewed
-
Labs: Labs Reviewed by me
--- NOTE | 2025-04-01 11:43 | CON.GS ---
Consultation
-
Date/Time Consultation Performed: 04/01/25
Medical History
-
History of Present Illness:
76 yo F with a PMH of HTN, HLD, anxiety/depression, GERD, complicated/perforated diverticulitis s/p Colunga's procedure s/p colostomy reversal in the c/b recurrent SBO's s/p exploratory laparotomy and SBR in 2003, 2005, and most recently in
08/2021 at [facility] with subsequent admission for SBO here at in 2021 which was able to be managed nonoperatively who presents with lower abdominal pain which began 3-4 days ago. She initially presented to urgent care and was prescribed an antibiotic
for UTI. She did not have improvement and went to urgent care again the following day and was given a different medication which she reports made her quite nauseated. She began having intractable vomiting at home yesterday and called EMS and was
brought to the ED for evaluation. She denies active nausea currently but does note the lower abdominal discomfort is still present. She has been passing flatus with a BM this morning as well.
Past Medical History
Past Medical History: Diverticulitis, GERD, HTN, Psychiatric (anxiety/depression) and Other (Recurrent SBO)
Past Surgical History: Bowel Resection (Dom's procedure for perforated diverticulitis s/p reversal, ex laps with SBR x3 ), Orthopedic (right TKA) and Other (LLE vein stripping)
Social History
Alcohol: None
Family History
Family History: Reviewed & Not Pertinent
Allergies / Home Medications
Allergy/AdvReac Type Severity Reaction Status Date / Time
levofloxacin (From Levaquin) Allergy Unknown Verified 03/31/25 22:22
sorbitol Allergy DIARRHEA Verified 03/31/25 22:22
sulfamethoxazole (From Allergy Unknown Verified 03/31/25 22:22
Bactrim)
trimethoprim (From Bactrim) Allergy Unknown Verified 03/31/25 22:22
�Medication �Instructions �Recorded �Confirmed �Type
escitalopram oxalate 10 mg tablet 10 mg PO HS Mental Health/Anxiety 05/19/21 04/01/25 History
famotidine 20 mg tablet 20 mg PO BID Gastrointestinal issue 05/19/21 04/01/25 History
sucralfate 1 gram tablet 1 g PO ACHSPRN PRN gi upset/issues 05/19/21 10/28/24 History
ascorbic acid (vitamin C) 500 mg 500 mg PO DAILY Supplement 06/25/21 10/28/24 History
tablet (Vitamin C)
cholecalciferol (vitamin D3) 25 25 mcg PO DAILY Supplement 06/25/21 04/01/25 History
mcg (1,000 unit) tablet
cyanocobalamin (vitamin B-12) 1,000 mcg PO DAILY Supplement 06/25/21 04/01/25 History
1,000 mcg tablet
hyoscyamine sulfate 0.125 mg 0.125 mg PO Q4HPRN PRN bowel 06/25/21 04/01/25 History
sublingual tablet problems
multivitamin with folic acid 400 1 tab PO DAILY Supplement 06/25/21 04/01/25 History
mcg tablet (Tab-A-Aric)
atorvastatin 20 mg tablet 20 mg PO QPM High cholesterol 02/16/22 04/01/25 History
minoxidil 2.5 mg tablet 1.25 mg PO DAILY Blood Pressure 09/06/23 04/01/25 History
peg 400-propylene glycol (PF) 0.4 1 drp BOTH EYES BIDPRN PRN dryness 09/06/23 10/28/24 History
%-0.3 % eye drops in a dropperette
(Systane (PF))
diphenhydramine HCl 50 mg capsule 50 mg PO HS PRN if waking up after 09/07/23 04/01/25 History
xanax and unable to sleep again
aspirin 81 mg PO DAILY Blood Clot 10/28/24 04/01/25 History
Prevention/Tx
lisinopril 20 mg tablet 20 mg PO DAILY Blood Pressure 10/28/24 04/01/25 History
alprazolam 0.5 mg tablet 0.5 mg PO HSPRN PRN insomnia #3 11/02/24 04/01/25 Rx
tabs
cefdinir 300 mg capsule 300 mg PO Q12 #0 caps 11/02/24 Rx
docusate sodium 100 mg capsule 100 mg PO BID #0 caps 11/02/24 Rx
oxycodone 5 mg tablet 5 mg PO Q4HPRN PRN severe pain #10 11/02/24 Rx
tabs
polyethylene glycol 3350 17 gram 17 g PO DAILYPRN PRN constipation 11/02/24 Rx
oral powder packet #0 ea
sennosides 8.6 mg tablet (Uma-isela) 17.2 mg (2 x 8.6 mg) PO BID #0 tabs 11/02/24 Rx
Prolia 60 mg SC [id number] 04/01/25 04/01/25 History
Review of Systems
-
History Source: Patient
All other systems: Negative unless noted
A 10 point review of systems was completed, and was negative except as per HPI.
Physical Exam
Vital Signs
Temp Pulse Resp BP Pulse Ox
98.3 F 63 16 128/60 97
04/01/25 08:17 04/01/25 08:17 04/01/25 08:17 04/01/25 08:17 04/01/25 08:17
03/31/25 04/01/25 04/02/25
06:59 06:59 06:59
Actual Weight 65 kg 63.412 kg
Body Mass Index (BMI) 23.3
Lab Results
04/01/25 06:13
04/01/25 06:13
WBC 12.0 10^3/uL (4.8-10.8) H 04/01/25 06:13
Hgb 11.4 g/dL (12.0-16.0) L 04/01/25 06:13
Hct 37.3 % (37.0-47.0) 04/01/25 06:13
Plt Count 305 10^3/uL (130-400) 04/01/25 06:13
Abs Immat Gran (auto) 0.1 10^3/uL (0-0.05) H 04/01/25 00:03
Neutrophils % 90.0 % (42.2-75.2) H 04/01/25 00:03
Physical Exam
General: Well Developed and Well Nourished
HEENT: Moist Mucous Membranes
Respiratory: Non Labored Respirations
GI: Soft, Tender (mild to mod just below umbilicus) and Distended (mildly)
Skin: Warm and Dry
Neuro: Awake, Alert and AO x 3
Psych: Calm
Data Reviewed
-
CT Scan: Image Personally Visualized and interpreted, Report Reviewed by me, Discussed with Physician and Discussed with Patient
Labs: Labs Reviewed by me, Discussed with Physician and Discussed with Patient
Old Records: Reviewed
Assessment / Plan
-
80 yo female with h/o complicated/perforated diverticulitis s/p Colunga's procedure s/p colostomy reversal in the c/b recurrent SBO's s/p exploratory laparotomy and SBR in 2003, 2005, and most recently in 08/2021 at [facility] with subsequent
admission for SBO here at in 2021 which was able to be managed nonoperatively who presents with lower abdominal pain which began 3-4 days ago. She was initially treated for UTI by urgent care clinic but had no improvement in pain and developed
vomiting causing her to present to the ED. Afebrile, VSS. Mild leukocytosis. UA abnormal, cx pending. CT imaging with concern for partial SBO likely d/t adhesions vs less likely ileus. Passing flatus and had a small BM today.
Plan:
NPO for bowel rest, hold off on NGT for now
ABX as per primary for coverage
IVF
Analgesics/antiemetics prn
VTE ppx with lovenox sq
[2025-04-01] MEDS: LOVENOX 40 MG SC (17:20)
[2025-04-02] MEDS: XANAX 0.5 MG PO (00:52)
[2025-04-02] MEDS: STERILE WATER FOR INJECTION 10 ML IV (04:25)
[2025-04-02] MEDS: ROCEPHIN 1000 MG IV (04:25)
[2025-04-02] MEDS: NSS 1000 IV (04:32)
[2025-04-02 06:30] LABS: Hematocrit 31.8 % (37.0-47.0); Hemoglobin 9.7 g/dL (12.0-16.0); Mean Corp Hgb Conc. 30.5 g/dL (33.0-37.0); Mean Corpuscular Volume 99.1 fL (81.0-99.0); Platelet Count 237 10^3/uL (130-400); Red Cell Dist. Width 14.1 % (11.5-14.5)
[2025-04-02 06:48] LABS: Blood Urea Nitrogen 8 mg/dl (7-17); Calcium 7.6 mg/dl (8.4-10.2); Carbon Dioxide 26 mmol/L (22-30); Chloride 109 mmol/L (98-107); Estimated Creatinine Clearance 65 ml/min; Glucose 86 mg/dl (70-99); Potassium 4.3 mmol/L (3.5-5.1); Sodium 138 mmol/L (135-145); eGFR > 60.00
[2025-04-02 07:10] VITALS: BP 128/64
[2025-04-02] MEDS: NSS (PRESERVATIVE FREE) 10 ML IV (07:55)
[2025-04-02] MEDS: PROTONIX IV 40 MG IV (07:55)
--- NOTE | 2025-04-02 09:31 | W.PN.HOSP.TC ---
Today's Communication/Plan
-
Discharge today if she also tolerates low residue diet for lunch
Assessment / Plan
Assessment / Plan
80y woman with PMH significant for hypertension and recurrent SBO who presents to ED complaining of abdominal pain with N/V.
1. SBO - appears to be resolving
- Abdominal pain with associated N/V and dilated loops of small bowel on CT scan seems most c/w SBO.
- Appreciate surgery input, diet advanced to low residue, which she tolerated for breakfast
- Continue low residue diet, and discharge if she tolerates for lunch as well
2. Abnormal UA with poss UTI
- Patient has no urinary symptoms now nor has she throughout this process.
- Urine cultures growing Klebsiella pneumoniae, sensitive to Augmentin/Rocephin
- Currently on IV Rocephin, Will discharge on Augmentin to complete a 3-day course
3. Benign Hypertension
- Blood pressure 128/64, off of her normal blood pressure medications
- May resume minoxidil upon discharge, recommend holding lisinopril 20 mg daily for 1 week
DVT prophylaxis: SCDs
Code Status: Full
Total time spent to see the patient on the floor, examine the patient, review data and lab results, discuss treatment plan with patient, nursing staff around 35 minutes.
Physical Exam
General: No acute distress
HEENT: Normocephalic, Atraumatic, EOMI, MMM
Respiratory: Clear to Auscultation bilaterally
Cardiac: Normal S1/S2, Regular Rate and Rhythm
GI: Soft, Nontender, Nondistended, Normal Bowel Sounds
Extremities: No Clubbing, Cyanosis, or Edema
Neuro: Nonfocal/Grossly Intact
Psych: Calm, Cooperative
Derm: No Visible lesions
Anticipated Discharge: Today
Subjective/Interval History
-
Date of Service: April 02, 2025
Patient ate a low residue diet for breakfast. She denies nausea, denies vomiting, denies abdominal pain. She had gas and stool overnight. No chest pain. No fever.
Objective Data
-
Labs:
Laboratory Results
04/02/25
05:19
WBC 6.6
Hgb 9.7 L
Hct 31.8 L
Plt Count 237 D
Sodium 138
Potassium 4.3
Chloride 109 H
Carbon Dioxide 26
BUN 8
Creatinine 0.6
Glucose 86
Calcium 7.6 L D
Vital Signs:
Vital Signs
Temp Pulse Resp BP Pulse Ox
98 F 63 16 128/64 93
04/02/25 07:10 04/02/25 07:10 04/02/25 07:10 04/02/25 07:10 04/02/25 07:10
I&O
04/01/25 04/02/25 04/03/25
06:59 06:59 06:59
Intake Total 1680 / 1680
Balance 1680 / 1680
--- NOTE | 2025-04-02 09:38 | W.PN.GS2 ---
Today's Communication / Plan
-
advance diet
Assessment / Plan
-
80 yo female with h/o complicated/perforated diverticulitis s/p Colunga's procedure s/p colostomy reversal in the c/b recurrent SBO's s/p exploratory laparotomy and SBR in 2003, 2005, and most recently in 08/2021 at [facility] with subsequent
admission for SBO here at in 2021 which was able to be managed nonoperatively who presents with pSBO while undergoing tx for UTI.
Afebrile, VSS.
Mild leukocytosis now resolved.
UA abnormal, cx pending
Clinically improving, tolerating clears. Passing flatus/bm
Plan:
Advance to LRD
ABX as per primary for coverage
VTE ppx with lovenox sq
Ok for discharge from surgical standpoint once tolerating diet
Subjective Data
-
Date of Service: April 02, 2025
Pt seen and examined at bedside with Dr. Barrera. Denies n/v or abdominal pain. Tolerating clears. Passing a good amount of flatus. Passed 2 loose bms yesterday evening. Denies dysuria.
Objective Data
-
Intake and Output
04/01/25 04/02/25 04/03/25
06:59 06:59 06:59
Intake Total 1680 / 1680
Balance 1680 / 1680
Intake:
Oral fluids 480 / 480
IV fluids (Total) 1200 / 1200
Other:
Number of approximated MODERATE 1
amounts of urine
Vital Signs
Temp Pulse Resp BP Pulse Ox
98 F 63 16 128/64 93
04/02/25 07:10 04/02/25 07:10 04/02/25 07:10 04/02/25 07:10 04/02/25 07:10
Lab Results
04/02/25 05:19
04/02/25 05:19
Calcium 7.6 mg/dl (8.4-10.2) L D 04/02/25 05:19
Total Bilirubin 1.1 mg/dl (0.2-1.3) 04/01/25 00:03
AST 33 U/L (14-36) 04/01/25 00:03
ALT 19 U/L (0-35) 04/01/25 00:03
Alkaline Phosphatase 85 U/L (38-126) 04/01/25 00:03
Total Protein 7.3 g/dl (6.3-8.2) 04/01/25 00:03
Albumin 4.5 g/dl (3.5-5.0) 04/01/25 00:03
Physical Exam
-
NAD
ABD soft, mild distention, nt
--- NOTE | 2025-04-02 10:05 | CM ---
Addendum entered by Dilshad Bentley 04/02/25 14:13:
Discharge order noted. Pt is aware, expressed her agreement with discharge and stated her will transport home.
IMM reviewed, placed on chart, pt has a copy.
Noafter care VN needs identified.
D/C plan: home no needs. to transport.
Original Note:
CM following re: discharge planning.
Reviewed pt's chart, met with pt.
Pt is an 80 year old female, admitted with primary dx of SBO.
Pt reports she lives with 2SH, 1 step to enter, has 2 supportive children and [place]. Pt described herself as independent in all areas [employer]. No DME, VN or SNF history.
PCP: Moses Alvarez MD
Pharmacy: [facility]
D/C plan: home with anticipated no needs. to transport at discharge.
CM will follow with discharge plan updates as hospitalization progresses
[2025-04-02] MEDS: NSS IV (12:18)
--- NOTE | 2025-04-02 12:32 | W.DCSUMMARY ---
Discharge Summary
Discharge Data
Date of Admission: 04/01/25
Date of Discharge: 04/02/25
-
Pending Results: No
Hospital Course
Discharge diagnosis:
Acute partial small bowel obstruction
Abnormal urinalysis with possible urinary tract infection
Essential hypertension
Consults: General surgery
CT abd/pelvis:
Small bowel dilatation at suspicious for at least partial distal small bowel obstruction. No free air.
Patchy sclerosis in the sacral mariella which could represent insufficiency type fractures.
Hospital course:
80-year-old female with a past medical history of HTN, HLD, anxiety/depression, GERD, complicated/perforated diverticulitis s/p Colunga's procedure s/p colostomy reversal in the , and previous SBO who presented with nausea and vomiting, and was
found to have acute partial small bowel obstruction. Patient was seen in conjunction with surgery, and treated with bowel rest, IV fluids. She started having stools and gas. She tolerated a low residue diet.
For her abnormal urine analysis concerning for possible urinary tract infection, she received IV Rocephin. Urine cultures grew out Klebsiella, pansensitive to everything except for ampicillin. She Will be discharged on Augmentin to complete a
3-day course.
Patient is medically stable and cleared by surgery for discharge. She needs to follow-up with her PCP in 1 week.
Discharge Plan
-
Patient Disposition: Home (Routine Discharge)
Discharge Diagnosis/Procedures: Partial small bowel obstruction, acute urinary tract infection
Condition: Good
Diet: Low Fiber
Activity: As tolerated
Driving Restrictions: As prior to admission
Activity Restrictions/Additional Instructions:
Your blood pressure in the hospital was 128/64 without taking lisinopril or minoxidil.
Recommend holding lisinopril for 7 days, and can resume on 04/09/2025.
Please follow-up with your PCP in 1 week.
Referrals:
Moses Alvarez MD [Family Provider] - in one week
Prescriptions:
New
amoxicillin-pot clavulanate 875-125 mg Tablet
1 tab PO Q12 Qty: 5 0RF
Continued
sucralfate 1 GRAM tablet
1 g PO ACHSPRN PRN (Reason: gi upset/issues)
famotidine 20 MG tablet
20 mg PO BID
escitalopram oxalate 10 MG tablet
10 mg PO HS
ascorbic acid (vitamin C) [Vitamin C] 500 MG tablet
500 mg PO DAILY
cyanocobalamin (vitamin B-12) 1,000 MCG tablet
1,000 mcg PO DAILY
hyoscyamine sulfate 0.125 MG tablet, sublingual
0.125 mg PO Q4HPRN PRN (Reason: bowel problems)
cholecalciferol (vitamin D3) 1,000 UNITS tablet
25 mcg PO DAILY
multivitamin with folic acid [Tab-A-Aric] 1 TABLET tablet
1 tab PO DAILY
atorvastatin 20 mg Tablet
20 mg PO QPM
minoxidil 2.5 mg Tablet
1.25 mg PO DAILY
Systane (PF) 0.4-0.3 % Dropperette
1 drp BOTH EYES BIDPRN PRN (Reason: dryness)
diphenhydramine HCl 50 mg Capsule
50 mg PO HS PRN (Reason: if waking up after xanax and unable to sleep again)
aspirin
81 mg PO DAILY
docusate sodium 100 mg Capsule
100 mg PO BID Qty: 0 0RF
sennosides [Uma-isela] 8.6 mg Tablet
17.2 mg PO BID Qty: 0 0RF
oxycodone 5 mg Tablet
5 mg PO Q4HPRN PRN (Reason: severe pain) Qty: 10 0RF
alprazolam 0.5 MG tablet
0.5 mg PO HSPRN PRN (Reason: insomnia) Qty: 3 0RF
polyethylene glycol 3350 17 gram Powder In Packet
17 g PO DAILYPRN PRN (Reason: constipation) Qty: 0 0RF
Prolia
60 mg SC [id number]
Held
lisinopril 20 mg Tablet
20 mg PO DAILY
Hold Instructions: Resume on 04/09/25.
Discontinued
cefdinir 300 mg Capsule
300 mg PO Q12 Qty: 0 0RF
Discharge Orders:
Discharge Patient (As Directed); Ordered 04/02/25
Ordered By: Kulwinder Spence
Discharge Date and Time
Discharge Date/Time: 04/02/25 15:57
Print Language: CHADIAN
[2025-04-02 15:04] VITALS: BP 132/68
== END 2025-04-02 15:57 | disposition home or self-care (01) | DRG 389 ==
LOC: 2 SOUTH 06:17
PROVIDERS: Physician Assistant; Registered Nurse; ADMITTING PHYSICIAN Hospitalist; ATTENDING PHYSICIAN Family Medicine; EMERGENCY PHYSICIAN Emergency Medicine; FAMILY PHYSICIAN Internal Medicine; OTHER PHYSICIAN Surgery
DX: K56.51 Intestinal adhesions [bands], with partial obstruction (principal); N39.0 Urinary tract infection, site not specified; I10 Essential (primary) hypertension; B96.1 Klebsiella pneumoniae [K. pneumoniae] as the cause of diseases classified elsewhere; Z79.899 Other long term (current) drug therapy; K21.9 Gastro-esophageal reflux disease without esophagitis; Z88.1 Allergy status to other antibiotic agents; Z79.82 Long term (current) use of aspirin; E78.00 Pure hypercholesterolemia, unspecified; F32.A Depression, unspecified; F41.9 Anxiety disorder, unspecified; Z96.651 Presence of right artificial knee joint
CPT/HCPCS: 74177; 80048; 80053; 81003; 81015; 83605; 83690; 85025; 85027; 87086; 96374; 99284; Q9967